=== PATIENT | female | born 1990 | race Two or more races ===

== ENCOUNTER 2024-09-16 10:28 | Inpatient (IN) | payer MEDICAID, OTHER ==
[~2024-09-16] VITALS: Ht 167.6 cm; Wt 98.0 kg
--- NOTE | 2024-09-16 10:43 | ECG ---
[facility] Test Date: 2024-09-16 Test Time: 10:36:50 Pat Name: JULIA HARTLEY Department: ED Room: 0217 Gender: F Director Investor Relations: EDGARDO : 1990 Requested By: MIGUEL A PINON Order Number: [id number] Reading MD: Jayme Cheema Measurements Intervals [place] Rate: 91 P: 64 MO: 109 QRS: 35 QRSD: 89 T: 33 QT: 356 QTc: 439 Interpretive Statements Sinus rhythm Short MO interval Baseline wander in lead(s) V3 Electronically Signed On 09-17-2024 17:00:47 PDT by Jayme Cheema Please click the below link to view image of tracing.
[2024-09-16 10:49] LABS: Hematocrit 26.3 % (36.0-46.0); Hemoglobin 8.0 g/dL (12.2-16.2); Mean Corpuscular Hemoglobin 21.9 pg (28.0-32.0); Mean Corpuscular Volume 72.2 fL (80.0-100.0); Nucleated Red Blood Cells % 0.1 %
--- NOTE | 2024-09-16 10:49 | ED.PDOC ---
History of Present Illness HPI Comments 34-year-old female with PMHx MS, Anemia brought in by EMS presents with a chief complaint of weakness and left leg numbness. Patient recently moved here from [place] and has yet to establish a primary care doctor. Patient mentions that she takes shots for her MS, but has not had one in 4 months due to moving. Patient also is having left leg numbness. Time Seen by MD: 10:28 Reviewed Notes: Nurses Notes, Medications, Allergies Allergies: Coded Allergies: NO KNOWN ALLERGIES (Unverified , 09/16/24) Information Source: Patient, Emergency Med Personnel Mode of Arrival: EMS Severity: Moderate Timing: Days Duration: Since onset Prehospital treatment: Patent Solicitor Past Medical History PAST MEDICAL HISTORY: Anemia Past Medical History (Other): MS Surgical History: IMPORT EXPORT CLERK History: Denies all IMPORT EXPORT CLERK Hx Family History Family History: Reviewed,noncontributory to illness Social History Smoker: Non-Smoker Alcohol: Denies ETOH Use Drugs: Denies Drug Use Lives In: Home Constitutional: reports: weakness; denies: chills, diaphoresis, fatigue, fever, malaise, sweats, others EENTM: denies: blurred vision, double vision, ear bleeding, ear discharge, ear drainage, ear pain, ear ringing, eye pain, eye redness, hearing loss, mouth pain, mouth swelling, nasal discharge, nose bleeding, nose congestion, nose pain, photophobia, tearing, throat pain, throat swelling, voice changes, others Respiratory: denies: cough, hemoptysis, orthopnea, SOB at rest, shortness of breath, SOB with excertion, stridor, wheezing, others Cardiovascular: denies: chest pain, dizzy spells, diaphoresis, Dyspnea on exertion, edema, irregular heart beat, left arm pain, lightheadedness, palpitations, PND, syncope, others Gastrointestinal: denies: abdomen distended, abdominal pain, blood streaked bowels, constipated, diarrhea, dysphagia, difficulty swallowing, hematemesis, melena, nausea, poor appetite, poor fluid intake, rectal bleeding, rectal pain, vomiting, others Genitourinary: denies: abnormal vagina bleeding, burning, dyspareunia, dysuria, flank pain, frequency, hematuria, incontinence, pain, , vagina discharge, urgency, others Neurological: reports: numbness; denies: dizziness, fainting, headache, left sided numbness, left sided weakness, paresthesia, pre-existing deficit, right sided numbness, right sided weakness, seizure, speech problems, tingling, tremors, weakness, others Musculoskeletal: denies: back pain, gout, joint pain, joint swelling, muscle pa in, muscle stiffness, neck pain, others Integumetry: denies: bruises, change in color, change in hair/nails, dryness, laceration, lesions, lumps, rash, wounds, others Allergic/Immunocompromised: denies: Difficulty Healing, Frequent Infections, Hives, Itching, others Hematologic/Lymphatic: denies: anemia, blood clots, easy bleeding, easy bruising, swollen glands, others Endocrine: denies: excessive hunger, excessive sweating, excessive thirst, excessive urination, flushing, intolerance to cold, intolerance to heat, unexplained weight gain, unexplained weight loss, others Psychiatric: denies: anxiety, bipolar disorder, depression, hopeless, panic disorder, schizophrenia, sleepless, suicidal, others All Other Systems: Reviewed and Negative Physical Exam General Appearance: Moderate Distress HEENT: Normal ENT Inspection, Pharynx Normal, TMs Normal Neck: Full Range of Motion, Non-Tender, Normal, Normal Inspection Respiratory: Chest Non-Tender, Lungs Clear, No Accessory Muscle Use, No Respiratory Distress, Normal Breath Sounds Cardiovascular: No Edema, No JVD, No Murmur, No Gallop, Normal Peripheral Pulses, Regular Rate/Rhythm Breast Exam: Deferred Gastrointestinal: No Organomegaly, Non Tender, No Pulsatile Mass, Normal Bowel Sounds, Soft Genitalia: Deferred Pelvic: Deferred Rectal: Deferred Extremities: No calf tenderness, Normal capillary refill, Pedal edema Musculoskeletal : Apperance: Normal Neurologic: hairspring adjuster II-XII nml as Tested, Motor Weakness, Normal Affect, Normal Mood, No Sensory Deficits Cerebellar Function: Unable to Test Reflexes: Normal Skin: Dry, Pallor, Warm Lymphatic: No Adenopathy Was a procedure done? Was a procedure done?: No EKG EKG : Pulse Rate (adult): 91 Spicer: Normal Cardiac Rhythm: NSR Block: None Hypertrophy: None ST: Normal Differential Dx Considerations may include: Exacerbation of multiple sclerosis, anemia, UTI X-Ray, Labs, Meds, VS Vital Signs Date Time Temp Pulse Resp B/P (MAP) Pulse Ox O2 Delivery O2 Flow Rate FiO2 09/16/24 10:51 Room Air* 0 21 09/16/24 10:49 91 09/16/24 10:42 98.9 94 18 114/68 (83) 100 98.9 09/16/24 10:36 91 Lab Test 09/16/24 10:40 Range/Units White Blood Count 4.0 L 4.4-10.8 10^3/uL Red Blood Count 3.64 L 4.0-5.20 10^6/uL Hemoglobin 8.0 L 12.2-16.2 g/dL Hematocrit 26.3 L 36.0-46.0 % Mean Corpuscular Volume 72.2 L 80.0-100.0 fL Mean Corpuscular Hemoglobin 21.9 L 28.0-32.0 pg Mean Corpuscular Hemoglobin Concent 30.3 L 32.0-36.0 g/dL Red Cell Distribution Width 20.6 H 11.8-14.3 % Platelet Count 236 140-450 10^3/uL Mean Platelet Volume 8.7 6.9-10.8 fL Neutrophils (%) (Auto) 59.1 37.0-80.0 % Lymphocytes (%) (Auto) 29.5 10.0-50.0 % Monocytes (%) (Auto) 9.1 0.0-12.0 % Eosinophils (%) (Auto) 1.2 0.0-7.0 % Basophils (%) (Auto) 1.1 0.0-2.0 % Neutrophils # (Auto) 2.4 1.6-8.6 10 ^3/uL Lymphocytes # (Auto) 1.2 0.4-5.4 10 ^3/uL Monocytes # (Auto) 0.4 0-1.3 10 ^3/uL Eosinophils # (Auto) 0 0-0.8 10 ^3/uL Basophils # (Auto) 0 0-0.2 10 ^3/uL Nucleated Red Blood Cells 0.1 % Sodium Level 143 136-145 mmol/L Potassium Level 3.4 L 3.5-5.1 mmol/L Chloride Level 107 98-107 mmol/L Carbon Dioxide Level 28 20-31 mmol/L Anion Gap 8 5-15 Blood Urea Nitrogen 13 9-23 mg/dL Creatinine 0.81 0.550-1.02 mg/dL Glomerular Filtration Rate Calc 98 >90 mL/min BUN/Creatinine Ratio 16.0 10.0-20.0 Serum Glucose 87 74-106 mg/dL Calcium Level 9.8 8.7-10.4 mg/dL Current Medications Medications (Trade) Dose Ordered Sig/Lorena Route Start Time Stop Time Status Last Admin Sodium Chloride 500 ml @ 500 mls/hr Q1H ONCE IV 09/16/24 10:45 09/16/24 11:44 DC 09/16/24 10:51 Methylprednisolone Sodium Succinate (Solu Medrol) 125 mg ONCE ONCE IV 09/16/24 10:45 09/16/24 10:46 DC 09/16/24 10:51 IV Hep-Lock was established The patient was given normal saline at 500 cc bolus The patient was given Solu-Medrol 125 mg IV push The patient is being given morphine for the pain and Zofran for the nausea The patient had a CBC showing anemia with a hemoglobin of 8 and hematocrit 26.3 The patient will be typed and screened for possible transfusion The chemistry panel is within normal limits At this time, the patient is being admitted to the hospital for exacerbation of the multiple sclerosis Time of 1ST Reevaluation: 10:58 Reevaluation 1ST: Unchanged Time of 2ND Reevaluation: 11:53 Reevaluation 2ND: Unchanged Patient Education/Counseling: Diagnosis, Treatment, Prognosis Family Education/Counseling: Diagnosis, Treatment, Prognosis SEPSIS Sepsis Screen Physician Orders Urinalysis (09/16/24 10:35) Heplock Iv (09/16/24 10:35) Patent Solicitor (09/16/24 10:35) Blood Pressure (09/16/24 10:35) Pulse Oximetry (09/16/24 10:35) Vital Signs Date Time Temp Pulse Resp B/P (MAP) Pulse Ox O2 Delivery O2 Flow Rate FiO2 09/16/24 10:51 Room Air* 0 21 09/16/24 10:49 91 09/16/24 10:42 98.9 94 18 114/68 (83) 100 98.9 09/16/24 10:36 91 Laboratory Tests Test 09/16/24 10:40 White Blood Count 4.0 10^3/uL (4.4-10.8) L Medications Medications Dose Ordered Sig/Lorena Route Start Time Stop Time Status Last Admin Dose Admin Methylprednisolone Sodium Succinate 125 mg ONCE ONCE IV 09/16/24 10:45 09/16/24 10:46 DC 09/16/24 10:51 Sodium Chloride 500 ml @ 500 mls/hr Q1H ONCE IV 09/16/24 10:45 09/16/24 11:44 DC 09/16/24 10:51 Departure 1 Departure Time of Disposition: 11:52 Impression: Primary Impression: Multiple sclerosis exacerbation Disposition: ADMITTED INPATIENT Admit to: Med Surg Condition: Fair Critical Care Note Critical Care Time?: No Stability Stability form required: Yes Unstable for transfer: ED Physician Assesment (Clinical assesment) Heart Score Heart Score: Heart Score Response (Comments) Value History N/A 0 EKG N/A 0 Age N/A 0 Risk Factors N/A 0 Troponin N/A 0 Total 0 I personally scribed for MIGUEL A PINON MD ([email or web address]) on 09/16/24 at 10:49. Electronically submitted by Anirudh Quinn ([email or web address]). MIGUEL A PINON MD Sep 16, 2024 10:49
[2024-09-16] MEDS: methylPREDNISolone SOD SUCC 125 MG/2 ML VL IV ONE (10:51)
[2024-09-16] MEDS: SODIUM CHLORIDE 0.9% 500 ML IV ONE (10:51)
[2024-09-16 10:59] LABS: Sodium 143 mmol/L (136-145)
[2024-09-16 11:00] LABS: Anion Gap 8 (5-15); Calcium 9.8 mg/dL (8.7-10.4); Carbon Dioxide 28 mmol/L (20-31)
[2024-09-16 11:05] LABS: BUN/Creatinine Ratio 16.0 (10.0-20.0); Blood Urea Nitrogen 13 mg/dL (9-23); Chloride 107 mmol/L (98-107); Glucose 87 mg/dL (74-106); Potassium 3.4 mmol/L (3.5-5.1)
[2024-09-16] MEDS: ONDANSETRON HCL 4 MG/2 ML VIAL IV ONE (12:23)
[2024-09-16] MEDS: MORPHINE SULFATE INJ 2 MG/ml SYRG IV ONE (12:24)
--- NOTE | 2024-09-16 14:23 | DVHHP2 ---
History of Present Illness Reason for Visit: Generalized weakness History of Present Illness Melinda Owen is a 34-year-old female with past medical history of multiple sclerosis and anemia, who came to the hospital for generalized weakness. Patient moved up here about 4 months ago from [place]. In [place] she was being followed by jeanne yang and receiving monthly infusions to help manage her MS. She has not had those infusion or any medications for 4 months now and her symptoms are worsening. She is not aware of what the infusions were and does not know any of the medications she was previously taking. She has not established a primary care provider or neurologist up here. OWNER/OPERATOR: Other (MS) Heme/Onc: Anemia NOS Past Surgical History: (x 1) Smoke: No ALCOHOL: none Drugs: Marijuana Lives: with Family Domestic Violence: Neg Review of Systems Constitutional: No: Fever, Chills, Sweats, Weakness, Malaise, Other Eyes: No: Pain, Vision change, Conjunctivae inflammation, Eyelid inflammation, Other, Redness ENT: No: Ear pain, Ear discharge, Nose pain, Nose discharge, Nose congestion, Mouth pain, Mouth swelling, Throat pain, Throat swelling, Other Respiratory: No: Cough, Dry, Shortness of breath, SOB with excertion, Wheezing, Hemoptysis, Pleuritic Pain, Sputum, Wheezing, Other Cardiovascular: No: Chest Pain, Palpitations, Orthopnea, Paroxysmal Noc. Dyspnea, Edema, Lt Headedness, Other Gastrointestinal: No: Nausea, Vomiting, Abdominal Pain, Diarrhea, Constipation, Melena, Hematochezia, Other Genitourinary: No Dysuria, No Frequency, No Incontinence, No Hematuria, No Retention, No Other Musculoskeletal: No: other, neck pain, shoulder pain, arm pain, back pain, hand pain, leg pain, foot pain Skin: No: Rash, Lesions, Jaundice, Bruising, Other Neurological: Weakness, Incoordination, Change in speech; No: Numbness, Confusion, Seizures, Other Allergies: Coded Allergies: NO KNOWN ALLERGIES (Unverified , 09/16/24) Exam Vital Signs Vital Signs Date Time Temp Pulse Resp B/P (MAP) Pulse Ox O2 Delivery O2 Flow Rate FiO2 09/16/24 14:03 94 18 97/54 (68) 100 09/16/24 10:51 Room Air* 0 21 09/16/24 10:42 98.9 98.9 General Appearance: Alert, Oriented X3, Cooperative, moderate distress HEENT: Atraumatic, PERRLA Respiratory: Clear to auscultation, Normal air movement Cardiovascular: Regular rate, Normal S1, Normal S2, No murmurs Abdominal: Normal bowel sounds, Soft, No tenderness Extremities: No clubbing, No cyanosis, No edema, Normal pulses Skin: No rashes, No breakdown, No significant lesion Neuro: Other (H/O MS, in a wheel chair) Labs/Xrays Labs Test 09/16/24 10:40 Range/Units White Blood Count 4.0 L 4.4-10.8 10^3/uL Red Blood Count 3.64 L 4.0-5.20 10^6/uL Hemoglobin 8.0 L 12.2-16.2 g/dL Hematocrit 26.3 L 36.0-46.0 % Mean Corpuscular Volume 72.2 L 80.0-100.0 fL Mean Corpuscular Hemoglobin 21.9 L 28.0-32.0 pg Mean Corpuscular Hemoglobin Concent 30.3 L 32.0-36.0 g/dL Red Cell Distribution Width 20.6 H 11.8-14.3 % Platelet Count 236 140-450 10^3/uL Mean Platelet Volume 8.7 6.9-10.8 fL Neutrophils (%) (Auto) 59.1 37.0-80.0 % Lymphocytes (%) (Auto) 29.5 10.0-50.0 % Monocytes (%) (Auto) 9.1 0.0-12.0 % Eosinophils (%) (Auto) 1.2 0.0-7.0 % Basophils (%) (Auto) 1.1 0.0-2.0 % Neutrophils # (Auto) 2.4 1.6-8.6 10 ^3/uL Lymphocytes # (Auto) 1.2 0.4-5.4 10 ^3/uL Monocytes # (Auto) 0.4 0-1.3 10 ^3/uL Eosinophils # (Auto) 0 0-0.8 10 ^3/uL Basophils # (Auto) 0 0-0.2 10 ^3/uL Nucleated Red Blood Cells 0.1 % Sodium Level 143 136-145 mmol/L Potassium Level 3.4 L 3.5-5.1 mmol/L Chloride Level 107 98-107 mmol/L Carbon Dioxide Level 28 20-31 mmol/L Anion Gap 8 5-15 Blood Urea Nitrogen 13 9-23 mg/dL Creatinine 0.81 0.550-1.02 mg/dL Glomerular Filtration Rate Calc 98 >90 mL/min BUN/Creatinine Ratio 16.0 10.0-20.0 Serum Glucose 87 74-106 mg/dL Calcium Level 9.8 8.7-10.4 mg/dL SEPSIS Sepsis Screen Date sepsis recognized/suspect: Sep 16, 2024 Time Sepsis recognized/suspect: 1041 Recent Procedure: No On Antibiotic Therapy: No Respiratory Rate >20: No Heart Rate >90: No Temp<36 C (96.8 F) or >38.3 C: No SBP <90 or MAP <65 mmHG: No New Acute Mental Status Change: No Is the patient on CPAP, BIPAP,: No Physician Orders Urinalysis (09/16/24 10:35) Heplock Iv (09/16/24 10:35) Front End Loader Operator (09/16/24 10:35) Blood Pressure (09/16/24 10:35) Pulse Oximetry (09/16/24 10:35) * Neurology Consult (09/16/24 14:19) Admit (09/16/24 14:19) Code Status (09/16/24 14:19) Hydrocodone-Acet 5/325mg Tab ([place] 5/32 (09/16/24 14:30) Ondansetron Hcl (Zofran) (09/16/24 14:30) Docusate Sodium Capsule (Colace Capsule) (09/16/24 14:30) Fall Risk Precautions In Place QSHIFT (09/16/24 14:19) Complete Blood Count (09/17/24 04:00) Comprehensive Metabolic Panel (09/17/24 04:00) Pt Request For Service (09/16/24 14:19) Condition: Serious (09/16/24 14:19) Acetaminophen Tablet (Tylenol Tablet) (09/16/24 14:30) Vital Signs Date Time Temp Pulse Resp B/P (MAP) Pulse Ox O2 Delivery O2 Flow Rate FiO2 09/16/24 14:03 94 18 97/54 (68) 100 09/16/24 12:24 90 18 100/56 09/16/24 10:51 Room Air* 0 21 7/22/25 10:49 91 09/16/24 10:42 98.9 94 18 114/68 (83) 100 98.9 09/16/24 10:36 91 Laboratory Tests Test 09/16/24 10:40 White Blood Count 4.0 10^3/uL (4.4-10.8) L Medications Medications Dose Ordered Sig/Lorena Route Start Time Stop Time Status Last Admin Dose Admin Methylprednisolone Sodium Succinate 125 mg ONCE ONCE IV 09/16/24 10:45 09/16/24 10:46 DC 09/16/24 10:51 125 MG Morphine Sulfate 2 mg ONCE ONCE IV 09/16/24 12:00 09/16/24 12:01 DC 09/16/24 12:24 2 MG Ondansetron HCl 4 mg ONCE ONCE IV 09/16/24 12:00 09/16/24 12:01 DC 09/16/24 12:23 4 MG Sodium Chloride 500 ml @ 500 mls/hr Q1H ONCE IV 09/16/24 10:45 09/16/24 11:44 DC 09/16/24 10:51 500 MLS/HR Assessment/Plan Assessment/Plan Assessment: Multiple sclerosis exacerbation, Anemia, Plan: Admit to Med-Surg, Neurology consult, Physical therapy, Fall precautions, Start iron, UA, Plan discussed with: Patient, Other (Cousin) My Orders Orders - ELLEN PRUITT MOLYBDENUM STEAMER OPERATOR Procedure Category Date Status Time * Neurology Consult CONS 09/16/24 Verified 14:19 Admit ADMIT 09/16/24 Verified 14:19 Code Status CODE 09/16/24 Verified 14:19 Hydrocodone-Acet PHA 09/16/24 Verified 5/325mg Tab ([place] 14:30 Ondansetron Hcl PHA 09/16/24 Verified (Zofran) 14:30 Docusate Sodium PHA 09/16/24 Verified Capsule (Colace 14:30 Fall Risk Precautions OJ 09/16/[address] 14:19 Complete Blood Count LAB 09/17/24 Verified 04:00 Comprehensive LAB 09/17/24 Verified Metabolic Panel 04:00 Pt Request For Service PT 09/16/24 Verified 14:19 Condition: Serious OJ 09/16/24 Verified 14:19 Acetaminophen Tablet PHA 09/16/24 Verified (Tylenol Tablet) 14:30 Date of Service: Sep 16, 2024 Billing Provider: ELLEN PRUITT Common Visit Codes: [id number] INP/OBS CARE (MOD) ELLEN PRUITT Sep 16, 2024 14:23
[2024-09-16] MEDS ORDERED: DOCUSATE SOD 100 MG CAP PO PRN (14:30)
[2024-09-16] MEDS ORDERED: ACETAMINOPHEN 325 MG TAB PO PRN (14:30)
[2024-09-16] MEDS ORDERED: ONDANSETRON HCL 4 MG/2 ML VIAL IV PRN (14:30)
[2024-09-16] MEDS ORDERED: HYDROcodone-ACET 5/325MG TAB PO PRN (14:30)
[2024-09-16 17:05] VITALS: PULSE 86; RESP 16; O2SAT 100
[2024-09-16] MEDS: FERROUS SULFATE 325mg EC TAB PO SCH (18:36)
[2024-09-16 19:45] VITALS: PULSE 94; RESP 18; O2SAT 98
--- NOTE | 2024-09-16 20:21 | DVHINCON2 ---
Date of service: Sep 16, [address] Sung Reason for Consultation MS History of Present Illness Ms. Owen is a 34 years old right-handed female with a history of anemia, obesity, multiple sclerosis, she present to the [facility] on 09/16/2024 with a chief complaint of weakness in the left arm than leg since 09/15/2024, at that time, she is alert and fully oriented, she provided the following history She claims she has a history of multiple sclerosis. She developed slurred speech, gait disturbance five years ago, and after MRI scan to the head, cervical spine, thoracic spine, lumbar puncture in the [facility], she was said to have multiple sclerosis soon after her symptom onset. In the has a few months of time, she noticed difficulty with bladder control. She does not remember how she was treated before 2022, she has been on infusion once monthly (she does not remember the name other medication) for two years. She reports MS flare once yearly, with last one about one year ago, at her last MRI scan was about one year ago She has no acute chills, fever, or other acute illness She recently moved here from [place], and she has not established family care physician yet WBC/HB/PLT/MCV, 09/16/2024: 4/8/236/72.2 BMP 09/16/2024: Unremarkable Past Medical History Anemia, multiple sclerosis Past Surgical History Family History Hypertension Social History She has not tobacco smoke, but she smokes marijuana, she denies a history of drug or alcohol abuse Allergies: Coded Allergies: NO KNOWN ALLERGIES (Unverified , 09/16/24) Current Medications Current Medications Medications (Trade) Dose Ordered Sig/Lorena Route PRN Reason Start Time Stop Time Status Last Admin Acetaminophen/ Hydrocodone Bitart ([place] 5/325MG Tab) 1 tab Q4HP PRN PO MODERATE PAIN (4-6 PAIN SCALE) 09/16/24 14:30 Ondansetron HCl (Zofran) 4 mg Q4HP PRN IV NAUSEA / VOMITING 09/16/24 14:30 Docusate Sodium (Colace Capsule) 100 mg BIDPRN PRN PO FOR CONSTIPATION 09/16/24 14:30 Acetaminophen (Tylenol Tablet) 650 mg Q6HP PRN PO PAIN SCALE 1-3 OR TEMP>100.4 09/16/24 14:30 Ferrous Sulfate 325 mg BIDWM PO 09/16/24 18:00 09/16/24 18:36 Review of Systems As above, the other systems are negative Vital Signs Vital Signs Date Time Temp Pulse Resp B/P (MAP) Pulse Ox O2 Delivery O2 Flow Rate FiO2 09/16/24 19:45 97.8 94 18 117/63 (81) 98 97.8 09/16/24 19:45 Room Air* 0 21 Physical Exam GENERAL EXAM: General: the patient is well developed and nourished. No acute distress. HEENT: Normocephalic, neck is supple, no carotid bruits. No mass. RESPIRATORY: Normal respiratory effort with symmetrical lung expansion. Lungs clear to auscultation. CARDIOVASCULAR: Regular rate and rhythm with no murmurs. S1, S2. ABDOMEN: Soft, nontender, normal bowel sound NEUROLOGICAL: MENTAL STATUS: Awake and alert. Oriented to person, place, time and general circumstances. Able to give personal history SPEECH, LANGUAGE, HIGHER CORTICAL FUNCTION: no aphasia or dysathria. CRANIAL NERVES: #2: Intact visual ruiz to confrontation. The optic discs were sharp. . #3,4,6: Pupils are equal, round and reactive. EOMs full and conjugate. No nystagmus. #5: Facial sensation intact in all three divisions bilaterally. Mandibular strength intact. #7: Facial muscles symmetrical and strength intact. #8: Hearing grossly normal to voice. #9,10: Uvula and soft palate rise in the midline. Swallow and voice are normal. #11: Trapezius and sternomastoid strength intact bilaterally. #12: Tongue midline. No fasciculations or atrophy. SENSATION: Sensation to touch and pinprick is normal, no sensory level MOTOR: Normal tone in the upper and lower extremity. Normal muscle bulk. No fasciculations. No abnormal movements or posturing. Muscle strength of the major groups in the upper extremities is 5/5. Muscle strength of the major groups in the lower extremities is 5/5. REFLEXES: Deep tendon reflexes normal and symmetrical. No pathological reflexes. CEREBELLAR/COORDINATION: Finger to nose hertz bilaterally intentional tremor GAIT/STATION: deferred. Labs/Diagnostic Data Labs Test 09/16/24 10:40 Range/Units White Blood Count 4.0 L 4.4-10.8 10^3/uL Red Blood Count 3.64 L 4.0-5.20 10^6/uL Hemoglobin 8.0 L 12.2-16.2 g/dL Hematocrit 26.3 L 36.0-46.0 % Mean Corpuscular Volume 72.2 L 80.0-100.0 fL Mean Corpuscular Hemoglobin 21.9 L 28.0-32.0 pg Mean Corpuscular Hemoglobin Concent 30.3 L 32.0-36.0 g/dL Red Cell Distribution Width 20.6 H 11.8-14.3 % Platelet Count 236 140-450 10^3/uL Mean Platelet Volume 8.7 6.9-10.8 fL Neutrophils (%) (Auto) 59.1 37.0-80.0 % Lymphocytes (%) (Auto) 29.5 10.0-50.0 % Monocytes (%) (Auto) 9.1 0.0-12.0 % Eosinophils (%) (Auto) 1.2 0.0-7.0 % Basophils (%) (Auto) 1.1 0.0-2.0 % Neutrophils # (Auto) 2.4 1.6-8.6 10 ^3/uL Lymphocytes # (Auto) 1.2 0.4-5.4 10 ^3/uL Monocytes # (Auto) 0.4 0-1.3 10 ^3/uL Eosinophils # (Auto) 0 0-0.8 10 ^3/uL Basophils # (Auto) 0 0-0.2 10 ^3/uL Nucleated Red Blood Cells 0.1 % Sodium Level 143 136-145 mmol/L Potassium Level 3.4 L 3.5-5.1 mmol/L Chloride Level 107 98-107 mmol/L Carbon Dioxide Level 28 20-31 mmol/L Anion Gap 8 5-15 Blood Urea Nitrogen 13 9-23 mg/dL Creatinine 0.81 0.550-1.02 mg/dL Glomerular Filtration Rate Calc 98 >90 mL/min BUN/Creatinine Ratio 16.0 10.0-20.0 Serum Glucose 87 74-106 mg/dL Calcium Level 9.8 8.7-10.4 mg/dL Assessment Reported multiple sclerosis with the following symptoms Gait disturbance Slurred speech Bladder incontinence Acute left-sided weakness since 09/15/24, to rule out MS exacerbation Plan/Recommendation Monitoring Supportive treatment Telemetry UDS Urinalysis Chest x-ray later MRI brain with without contrast MRI C-spine with without contrast MRI T-spine with without contrast IV Solu-Medrol 1000 mg daily for five days GI prophylaxis DVT prophylaxis Up to chair Physical therapy She needs to establish a primary care in the [facility] More recommendation per clinical course Progress: Poor This medical document was created using an electronic medical record system with [employer] dictation system. Although this document has been carefully reviewed, there may still be some phonetic and typographical errors. These areas are purely typographical due to imperfections of the software programs, and do not reflect any compromise in the patient's medical care. Plan discussed with: Patient, Other JERARDO CUMMINGS MD Sep 16, 2024 20:21
[2024-09-16 20:52] VITALS: BP 111/70; PULSE 89; RESP 17; RESP 18; TEMP 96.1; O2SAT 99
[2024-09-16] MEDS ORDERED: LORazepam 2MG/ML-1ML VIAL IV PRN (22:30)
[2024-09-16] MEDS ORDERED: methylPREDNISolone SOD SUCC 1,000 MG in SODIUM CHL 0.9% 250 ML IV ONE (22:45)
[2024-09-16] MEDS: methylPREDNISolone SOD SUCC 125 MG/2 ML VL ONE (23:15)
[2024-09-16] MEDS: methylPREDNISolone SOD SUCC 1,000 MG in SODIUM CHL 0.9% 250 ML IV ONE (23:24)
[2024-09-17] VITALS (7 sets, daily range): BP systolic 98–113; BP diastolic 54–68; PULSE 52–100; RESP 16–20; TEMP 97–98.7; O2SAT 90–100
[2024-09-17 05:27] LABS: Hematocrit 24.6 % (36.0-46.0); Hemoglobin 7.6 g/dL (12.2-16.2); Mean Corpuscular Hemoglobin 22.4 pg (28.0-32.0); Mean Corpuscular Volume 72.3 fL (80.0-100.0); Nucleated Red Blood Cells % 0.0 %
[2024-09-17 05:48] LABS: Albumin 4.0 g/dL (3.2-4.8); Alkaline Phosphatase 76 U/L (46-116); Calcium 9.6 mg/dL (8.7-10.4); Carbon Dioxide 25 mmol/L (20-31); Chloride 106 mmol/L (98-107)
[2024-09-17 05:49] LABS: Anion Gap 9 (5-15); BUN/Creatinine Ratio 17.1 (10.0-20.0); Bilirubin, Total 0.3 mg/dL (0.2-1.0); Blood Urea Nitrogen 12 mg/dL (9-23); Potassium 3.6 mmol/L (3.5-5.1); Sodium 140 mmol/L (136-145); Total Protein 7.3 g/dL (5.7-8.2)
[2024-09-17 05:58] LABS: Alanine Aminotransferase < 9 U/L (7-40); Glucose 111 mg/dL (74-106)
[2024-09-17 08:58] LABS: Total Iron Binding Capacity 293.0 ug/dL (250-425)
[2024-09-17 09:01] LABS: Ferritin 9.1 ng/mL (10-291); Iron 246.0 ug/dL (50-170)
--- NOTE | 2024-09-17 09:09 | DVHPN2 ---
Progress Note - Dictate Date Seen: Sep 17, 2024 Medical Necessity Reason Pt with a Central, PICC or Fol: No Subjective Ms. Brayden is a 34 years old right-handed female with a history of anemia, obesity, multiple sclerosis, she present to the [facility] on 09/16/2024 with a chief complaint of weakness in the left arm than leg since 09/15/2024, I have seen and examined the patient, I have talked to her nurse, she is doing fine, no new complaints, she reports feeling better Her MRI showed active demyelinating disease in the brain UDS, 09/17/2024: Negative Urinalysis, 05/18/2024: WBC: 328, urine leukocyte esterase: 3+ WBC/HB/PLT/MCV, 09/16/2024: 4/8/236/72.2 BMP 09/16/2024: Unremarkable CMP, 08/2324: Unremarkable Beta hCG, 09/16/24: 0.1 Chest x-ray, 09/17/2024: No evidence of acute disease. MRI brain WWO, 09/17/2024: No evidence of acute infarction, intracranial hemorrhage, mass effect or hydrocephalus. Moderate white matter disease consistent with given history of multiple sclerosis. Subcentimeter enhancing lesion in the right frontal white matter consistent with active demyelination. Clinical correlation and continued follow-up is recommended. Likely sebaceous cyst in the right parietal scalp. MRI C-spine o, 09/17/2024: 1. No significant posterior disc disease, spinal canal or neural foraminal narrowing. 2. Patchy abnormal cord signal throughout the cervical spine consistent with demyelinating disease. No associated enhancement to suggest active demyelination. Clinical correlation and continued follow-up is recommended. MRI T-spine, 09/17/2024: 1. No significant posterior disc disease, central canal or neural foraminal narrowing. 2. Limited by motion, particularly on the axial images. Patchy abnormal cord signal throughout the thoracic spine consistent with demyelinating disease. Questionable enhancement in the midthoracic spine could represent active demyelination. Clinical correlation and continued follow- up is recommended. vital signs Vital Sign Date Time Temp Pulse Resp B/P (MAP) Pulse Ox O2 Delivery O2 Flow Rate FiO2 09/17/24 08:40 98.3 84 20 98/65 (76) 98 98.3 09/16/24 20:52 Room Air* 0 21 Total Intake and Output 09/16/24 09/16/24 09/17/24 15:00 23:00 07:00 Intake Total 500 ml 110 ml Balance 500 ml 110 ml medications Current Medications Medications Dose Ordered Sig/Lorena Route Start Time Stop Time Status Last Admin Dose Admin Acetaminophen/ Hydrocodone Bitart 1 tab Q4HP PRN PO 09/16/24 14:30 Ondansetron HCl 4 mg Q4HP PRN IV 09/16/24 14:30 Docusate Sodium 100 mg BIDPRN PRN PO 09/16/24 14:30 Acetaminophen 650 mg Q6HP PRN PO 09/16/24 14:30 Ferrous Sulfate 325 mg BIDWM PO 09/16/24 18:00 09/16/24 18:36 325 MG Lorazepam 1 mg ONCE PRN IV 09/16/24 22:30 Methylprednisolone Sodium Succinate 1000 mg/Sodium Chloride 250 ml @ 300 mls/hr DAILY IV 09/17/24 10:00 09/20/24 23:00 Pantoprazole Sodium 40 mg DAILY IV 09/17/24 10:00 objective General: the patient is well developed and nourished. No acute distress. MENTAL STATUS: Subjective SPEECH, LANGUAGE, HIGHER CORTICAL FUNCTION: no aphasia or dysathria. CRANIAL NERVES: Pupils are equal, round and reactive. EOMs full and conjugate. No nystagmus. Facial sensation intact in all three divisions bilaterally. Mandibular strength intact. Facial muscles symmetrical and strength intact. SENSATION: Sensation to touch and pinprick is normal, no sensory level MOTOR: Normal tone in the upper and lower extremity. Normal muscle bulk. No fasciculations. No abnormal movements or posturing. Muscle strength of the major groups in the extremities is 5/5. REFLEXES: Deep tendon reflexes normal and symmetrical. No pathological reflexes. CEREBELLAR/COORDINATION: Finger to nose hertz bilaterally intentional tremor GAIT/STATION: deferred. laboratory and microbiology Laboratory Tests 09/17/24 04:43 Test 09/17/24 04:43 Range/Units Serum Glucose 111 H 74-106 mg/dL Problem List Reported multiple sclerosis with the following symptoms Gait disturbance Slurred speech Bladder incontinence Acute left-sided weakness since 09/15/24, secondary to MS exacerbation Urinary tract infection Assessment/Plan Monitoring Supportive treatment Urine culture Telemetry IV Solu-Medrol 1000 mg daily for five days IV antibiotics GI prophylaxis DVT prophylaxis Up to chair Physical therapy She needs to establish a primary care in the [facility] More recommendation per clinical course Progress: Poor This medical document was created using an electronic medical record system with [employer] dictation system. Although this document has been carefully reviewed, there may still be some phonetic and typographical errors. These areas are purely typographical due to imperfections of the software programs, and do not reflect any compromise in the patient's medical care Prognosis poor Plan discussed with: Patient, Other JERARDO CUMMINGS MD Sep 17, 2024 09:08
[2024-09-17] MEDS: GADOTERATE MEG 10 MMOL/20ml INJ (0.5MMOL/ml) IV ONE (09:43)
[2024-09-17] MEDS ORDERED: FAMOTIDINE 20 MG TAB PO SCH (10:00)
--- NOTE | 2024-09-17 11:50 | DVH ---
PROCEDURE: MRI BRAIN HEAD WO W CONTRAST INDICATION: MS EXAM DATE: 09/17/2024 10:04 AM COMPARISON: None TECHNIQUE: MRI of the brain without intravenous contrast. FINDINGS: Diffusion weighted images of the brain demonstrate no evidence of acute infarction. There is no evidence of acute intracranial hemorrhage, extra-axial collection, mass effect, midline s hift, herniation or hydrocephalus. The ventricles, sulci and cisterns appear age appropriate. Moderate periventricular and deep white matter signal abnormality consistent with given history of mu ltiple sclerosis. Subcentimeter enhancing lesion in the right frontal white matter. There are no signal abnormalities on the susceptibility weighted sequences. The major vascular flow voids are present. The visualized paranasal sinuses and mastoid air cells are clear. Subcutaneous lesion in the right p arietal scalp likely a sebaceous cyst. IMPRESSION: 1. No evidence of acute infarction, intracranial hemorrhage, mass effect or hydrocephalus. Moderate w dai matter disease consistent with given history of multiple sclerosis. Subcentimeter enhancing lesi on in the right frontal white matter consistent with active demyelination. Clinical correlation and c ontinued follow-up is recommended. Likely sebaceous cyst in the right parietal scalp. HS:Y
--- NOTE | 2024-09-17 11:57 | DVH ---
[facility] [id number] [facility] [address] Ph: [phone] DIAGNOSTIC IMAGING Diagnostic Imaging Report : [id number] Signed PATIENT: JULIA HARTLEY ACCT: [id number] UNIT: [id number] : 1990 LOC: CENTRAL ROOM / BED: 0217 / B AGE / SEX: 34 / F ADM STATUS: ADM IN SERVICE 31 ORDERING PHYSICIAN: JERARDO CUMMINGS MD PROCEDURE(s): MSC - CERVICAL WITH CONTRAST REASON: ORDER NUMBER(s): [id number], ACCESSION NUMBER(s): [id number] PROCEDURE: MRI CERVICAL WITH CONTRAST INDICATION: MS EXAM DATE: 09/17/2024 10:19 AM COMPARISON: None TECHNIQUE: MRI cervical spine without intravenous contrast. FINDINGS: The cervical alignment is intact. The vertebral body heights and marrow signal are within normal limits. The visualized posterior fossa and craniocervical junction are intact. Patchy abnormal cord signal throughout the cervical spine. Associated abnormal enhancement. There is no prevertebral soft tissue swelling. The visualized paraspinal soft tissues are otherwise unremarkable. The following axial levels are detailed below: C2-C3: Unremarkable. C3-C4: Unremarkable. C4-C5: Unremarkable. C5-C6: Unremarkable. C6-C7: Unremarkable. C7-T1: Unremarkable. IMPRESSION: 1. No significant posterior disc disease, spinal canal or neural foraminal narrowing. 2. Patchy abnormal cord signal throughout the cervical spine consistent with demyelinating disease. No associated enhancement to suggest active demyelination. Clinical correlation and continued follow-up is recommended. HS:Y ATED BY: KLEVER LOZANO MD DICTATED DATE/TIME: 09/17/241154 SIGNED BY: KLEVER LOZANO MD SIGNED DATE/TIME: 09/17/241154 CC:
--- NOTE | 2024-09-17 12:04 | DVH ---
PROCEDURE: MRI THORACIC SPINE WO W INDICATION: MS Exam Date: 09/17/2024 10:33 AM COMPARISON: None TECHNIQUE: MRI thoracic spine with and without 20 cc clariscan intravenous contrast. FINDINGS: Limited by motion. The thoracic alignment is intact. The vertebral body heights are intact. There are degenerative en dplate changes with anterior and lateral osteophytes mid to lower thoracic levels. Patchy abnormal co rd signal throughout the thoracic spine consistent with given history of multiple sclerosis. Question able enhancement in the midthoracic spine. There is no significant posterior disc disease, central c anal or neural foraminal narrowing. The visualized paraspinal soft tissues are otherwise unremarkabl e. IMPRESSION: 1. No significant posterior disc disease, central canal or neural foraminal narrowing. 2. Limited by motion, particularly on the axial images. Patchy abnormal cord signal throughout the t horacic spine consistent with demyelinating disease. Questionable enhancement in the midthoracic spin e could represent active demyelination. Clinical correlation and continued follow-up is recommended. HS:Y
[2024-09-17] MEDS: PANTOPRAZOLE 40 MG/10 ML VIAL INJ IV SCH (12:14)
[2024-09-17] MEDS: methylPREDNISolone SOD SUCC 1,000 MG in SODIUM CHL 0.9% 250 ML IV SCH (12:15)
--- NOTE | 2024-09-17 12:27 | DVH ---
INDICATION: Infiltration TECHNIQUE: Frontal view of the chest. COMPARISON: None FINDINGS: . The heart and mediastinal contours are grossly unremarkable. There is no evidence of pleural disea se. The lungs are clear. The bony structures of the chest are intact without fracture. IMPRESSION: 1. No evidence of acute disease.
--- NOTE | 2024-09-17 16:19 | DVHPNRES ---
Progress Note Date Seen: Sep 17, 2024 Resident Creating Document: MARTA FORD RESIDENT Medical Necessity Reason Pt with a Central, PICC or Fol: No Subjective Review of Systems Patient is a 34-year-old female with prior medical history of multiple sclerosis diagnosed in 2016, who presents to the ED with chief complaint of left leg weakness. Per the patient, she has had decreased sensation in her left leg associated with decreased mobility. Additionally states, that for last 2 months she has had increased bladder incontinence and vocal/language changes with her words becoming more slurred. She states that she moved to [place] approximately 4 months and has not set up care with a PCP or neurologist. Per her mother in law, the patient did not start treatment for MS until late 2022. She states that the patient was receiving monthly steroid shots under the care of her neurologist in [place], however has not received any since moving here. States that during this time, they have witnessed progression of her symptoms. On evaluation in the ED, initial labs show WBC 4.0, Hb 8.0, Sodium 143, Potassium 3.4, BUN 13, and creatinine 0.81. Chest no evidence of acute disease. Due to suspicion of MS flare, patient was admitted for corticosteroid therapy and further work up. Surgical: 1 in 2014 Social: Refers weekly marijuana use, denies other drug use, alcohol use, or tobacco use. States she currently lives with her 's family and her children here in [place], states she feels safe. Patient seen at bedside. Patient is oriented in person, place, and time. States that she feels better, the numbness in her left leg is resolving. States she has been able to mobilize herself to her beside commode. Refers that home she mobilizes with a walker, due to gait instability. Currently denies other numbness or weakness in other regions of her body, changes in vision, nausea, vomiting, and palpitations. Patient was seen by Neurology, who recommended pulse dose of methylprednisolone for 5 days and MRI brain and spine. MRI brain shows no evidence of acute infarction, intracranial hemorrhage, mass effect or hydrocephalus, moderate paraventricular and deep white matter abnormality consistent with MS. Subcentimeter enhancing lesion in the right frontal white matter consistent wit active demyelination. MRI Cervical spine shows patchy abnormal cord signal throughout the cervical spine consistent with demyelinating disease, but no enhancement to suggest active demyelination. MRI thoracic spine shows patchy abnormal cord signal consistent with MS, questionable enhancement in midthoracic spine. Patient is currently on 1000 mg methylprednisolone IV pulse dose. We will continue to monitor. Review of Systems: Constitutional: Denies weight loss, fever and chills. HEENT: Refers changes in voice with increased speech slurring, Denies changes in vision and hearing. Respiratory: Denies shortness of breath and cough Cardiovascular: Denies chest discomfort or palpitations GI: Denies abdominal distention, abdominal pain, diarrhea : Refers progressive urinary incontinence, Denies dysuria and urinary frequency. Musculoskeletal: Refers decreased function of left leg, gait instability Denies any pain Skin: Denies rash and pruritus. Neurological: Refers progression of neurologic symptoms, decreased sensation in left leg, dizziness headache vision or hearing problems Objective vital signs Vital Sign Date Time Temp Pulse Resp B/P (MAP) Pulse Ox O2 Delivery O2 Flow Rate FiO2 09/17/24 13:01 98.7 100 20 106/54 (71) 100 98.7 09/17/24 08:00 Room Air* 0 21 Total Intake and Output 09/16/24 09/16/24 09/17/24 15:00 23:00 07:00 Intake Total 500 ml 110 ml Balance 500 ml 110 ml medications Current Medications Medications Dose Ordered Sig/Lorena Route Start Time Stop Time Status Last Admin Dose Admin Acetaminophen/ Hydrocodone Bitart 1 tab Q4HP PRN PO 09/16/24 14:30 Ondansetron HCl 4 mg Q4HP PRN IV 09/16/24 14:30 Docusate Sodium 100 mg BIDPRN PRN PO 09/16/24 14:30 Acetaminophen 650 mg Q6HP PRN PO 09/16/24 14:30 Ferrous Sulfate 325 mg BIDWM PO 09/16/24 18:00 09/17/24 12:14 325 MG Lorazepam 1 mg ONCE PRN IV 09/16/24 22:30 Methylprednisolone Sodium Succinate 1000 mg/Sodium Chloride 250 ml @ 300 mls/hr DAILY IV 09/17/24 10:00 09/20/24 23:00 09/17/24 12:15 300 MLS/HR Pantoprazole Sodium 40 mg DAILY IV 09/17/24 10:00 09/17/24 12:14 40 MG Examination General: The patient alert and oriented in person place and time. Patient following commands HEENT: Normocephalic, atraumatic, moist mucous membrane Respiratory/pulmonary: Clear lungs bilaterally, vesicular murmurs present in almost all lung ruiz, no associated crackles or wheezes. Abdomen: Obese, Abdomen nondistended, there is no pain to palpation in any of the abdominal quadrants, no palpable masses. Extremities: there is no peripheral edema present at the lower extremities. Peripheral pulses 3+ radial right, 3+ radials soft. 3+ dorsalis pedis right. 3+ dorsalis pedis left Skin: No rashes or pruritus Neurological: Intact cranial nerves with no focal neurologic deficits, muslce tone and bulk conserved, sensation to touch conserved in all extremities, strength is conserved in bilateral upper extremities, strength is conserved in lower extremities, gait was not evaluated. laboratory and microbiology Laboratory Tests 09/17/24 04:43 Test 09/17/24 04:43 Range/Units Serum Glucose 111 H 74-106 mg/dL Problem List/Assessment/Plan Problem List/Assessment/Plan Assessment and Plan: Possible Multiple Sclerosis Exacerbation -Solu Medrol 1000 mg IV daily -Brain MRI:No evidence of acute infarction, intracranial hemorrhage, mass effect or hydrocephalus. Moderate white matter disease consistent with given history of multiple sclerosis. Subcentimeter enhancing lesion in the right frontal white matter consistent with active demyelination. Clinical correlation and continued follow-up is recommended. Likely sebaceous cyst in the right parietal scalp. -MRI cervical spine:Patchy abnormal cord signal throughout the cervical spine consistent with demyelinating disease. No associated enhancement to suggest active demyelination. -MRI thoracic spine:Patchy abnormal cord signal throughout the thoracic spine consistent with demyelinating disease. Questionable enhancement in the midthoracic spine could represent active demyelination. -Protonix 40 mg IV for ulcer prevention Anemia, possibly chronic -Monitor H and H -Ferrous Sulfate 325 mg BID PO Marijuana use -Counseled patient on cessation of marijuana use for over 15 minutes Obesity, 33.8 kg/m2 DVT prophylaxis: Lovenox 40 mg SC daily Case discussed with Dr. Newton Goals of care discussed with the patient and her mother in law for over 20 minutes. FULL CODE. Plan discussed with: Patient, Other (Mother in Law) Date of Service: Sep 17, 2024 Billing Provider: MAGDA NEWTON MD Common Visit Codes: [id number] INP/OBS CARE(HIGH) MARTA FORD RESIDENT Sep 17, 2024 16:19 MAGDA NEWTON MD Sep 23, 2024 20:05
[2024-09-17 19:48] LABS: Urine Protein, UAD 1+ (Negative)
[2024-09-17 19:58] LABS: Amphetamine Screen, Urine Neg (NEGATIVE); Barbiturate Scree,Urine Neg (NEGATIVE); Benzodiazephine Screen, Urine Neg (NEGATIVE); Cannabinoid Screen, Urine Neg (NEGATIVE); Cocaine Screen, Urine Neg (NEGATIVE); Opiate Scree,Urine Neg (NEGATIVE); Phencyclidine Screen, Urine Neg (NEGATIVE)
[2024-09-17] MEDS: cefTRIAXone 1GM/50ML D5W 50 ML IV ONE (22:04)
[2024-09-18] VITALS (8 sets, daily range): BP systolic 90–111; BP diastolic 51–67; PULSE 60–94; RESP 16–18; TEMP 97.6–98.9; O2SAT 95–100
[2024-09-18 06:24] LABS: Hematocrit 24.7 % (36.0-46.0); Hemoglobin 7.6 g/dL (12.2-16.2); Mean Corpuscular Hemoglobin 22.5 pg (28.0-32.0); Mean Corpuscular Volume 73.0 fL (80.0-100.0); Nucleated Red Blood Cells % 0.1 %
[2024-09-18 06:26] LABS: Calcium 9.2 mg/dL (8.7-10.4); Chloride 106 mmol/L (98-107); Potassium 3.9 mmol/L (3.5-5.1); Sodium 141 mmol/L (136-145)
[2024-09-18 06:27] LABS: Anion Gap 8 (5-15); Carbon Dioxide 27 mmol/L (20-31)
[2024-09-18 06:33] LABS: BUN/Creatinine Ratio 15.9 (10.0-20.0); Blood Urea Nitrogen 10 mg/dL (9-23)
[2024-09-18 06:35] LABS: Glucose 123 mg/dL (74-106)
[2024-09-18] MEDS: cefTRIAXone 1GM/50ML D5W 50 ML IV SCH (08:57)
--- NOTE | 2024-09-18 18:24 | DVHPNRES ---
Progress Note Date Seen: Sep 18, 2024 Resident Creating Document: MARTA FORD RESIDENT Medical Necessity Reason Pt with a Central, PICC or Fol: No Subjective Review of Systems Patient is a 34-year-old female with prior medical history of multiple sclerosis diagnosed in 2016, who presents to the ED with chief complaint of left leg weakness. Per the patient, she has had decreased sensation in her left leg associated with decreased mobility. Additionally states, that for last 2 months she has had increased bladder incontinence and vocal/language changes with her words becoming more slurred. She states that she moved to [place] approximately 4 months and has not set up care with a PCP or neurologist. Per her mother in law, the patient did not start treatment for MS until late 2022. She states that the patient was receiving monthly steroid shots under the care of her neurologist in [place], however has not received any since moving here. States that during this time, they have witnessed progression of her symptoms. On evaluation in the ED, initial labs show WBC 4.0, Hb 8.0, Sodium 143, Potassium 3.4, BUN 13, and creatinine 0.81. Chest no evidence of acute disease. Due to suspicion of MS flare, patient was admitted for corticosteroid therapy and further work up. She was seen by Neurology who recommended pulse dose methylprednisolone for 5 days and MRI brain and spine. MRI brain shows no evidence of acute infarction, intracranial hemorrhage, mass effect or hydrocephalus, moderate paraventricular and deep white matter abnormality consistent with MS. Subcentimeter enhancing lesion in the right frontal white matter consistent wit active demyelination. MRI Cervical spine shows patchy abnormal cord signal throughout the cervical spine consistent with demyelinating disease, but no enhancement to suggest active demyelination. MRI thoracic spine shows patchy abnormal cord signal consistent with MS, questionable enhancement in midthoracic spine. Patient seen at bedside. Patient is oriented in person, place, and time. States that she feels better, has slept well, tolerating oral diet, and states numbing sensation in left leg is slowly improving. Follow-up labs show urinalysis significant for UTI. Vitals have been stable. She has been started on IV ceftriaxone and will continue on IV steroid pulse dose. We will continue to monitor. Objective vital signs Vital Sign Date Time Temp Pulse Resp B/P (MAP) Pulse Ox O2 Delivery O2 Flow Rate FiO2 09/18/24 17:00 97.6 60 18 108/67 (81) 95 97.6 09/18/24 08:00 Room Air* 0 21 Total Intake and Output 09/17/24 09/17/24 09/18/24 15:00 23:00 07:00 Intake Total 250 ml 415 ml 200 ml Balance 250 ml 415 ml 200 ml medications Current Medications Medications Dose Ordered Sig/Lorena Route Start Time Stop Time Status Last Admin Dose Admin Acetaminophen/ Hydrocodone Bitart 1 tab Q4HP PRN PO 09/16/24 14:30 Ondansetron HCl 4 mg Q4HP PRN IV 09/16/24 14:30 Docusate Sodium 100 mg BIDPRN PRN PO 09/16/24 14:30 Acetaminophen 650 mg Q6HP PRN PO 09/16/24 14:30 Ferrous Sulfate 325 mg BIDWM PO 09/16/24 18:00 09/18/24 17:05 325 MG Lorazepam 1 mg ONCE PRN IV 09/16/24 22:30 Methylprednisolone Sodium Succinate 1000 mg/Sodium Chloride 250 ml @ 300 mls/hr DAILY IV 09/17/24 10:00 09/20/24 23:00 09/18/24 09:31 300 MLS/HR Pantoprazole Sodium 40 mg DAILY IV 09/17/24 10:00 09/18/24 08:56 40 MG Ceftriaxone Sodium 50 ml @ 100 mls/hr DAILY@09 IV 09/18/24 09:00 09/18/24 08:57 100 MLS/HR Examination General: The patient alert and oriented in person place and time. Patient following commands HEENT: Normocephalic, atraumatic, moist mucous membrane Respiratory/pulmonary: Clear lungs bilaterally, vesicular murmurs present in almost all lung ruiz, no associated crackles or wheezes. Abdomen: Obese, Abdomen nondistended, there is no pain to palpation in any of the abdominal quadrants, no palpable masses. Extremities: there is no peripheral edema present at the lower extremities. Peripheral pulses 3+ radial right, 3+ radials soft. 3+ dorsalis pedis right. 3+ dorsalis pedis left Skin: No rashes or pruritus Neurological: Intact cranial nerves with no focal neurologic deficits, muslce tone and bulk conserved, sensation to touch conserved in all extremities, strength is conserved in bilateral upper extremities, strength is conserved in lower extremities, gait was not evaluated. laboratory and microbiology Laboratory Tests 09/18/24 05:14 Test 09/18/24 05:14 Range/Units Serum Glucose 123 H 74-106 mg/dL Problem List/Assessment/Plan Problem List/Assessment/Plan Assessment and Plan: Possible Multiple Sclerosis Exacerbation -Solu Medrol 1000 mg IV daily -Brain MRI:No evidence of acute infarction, intracranial hemorrhage, mass effect or hydrocephalus. Moderate white matter disease consistent with given history of multiple sclerosis. Subcentimeter enhancing lesion in the right frontal white matter consistent with active demyelination. Clinical correlation and continued follow-up is recommended. Likely sebaceous cyst in the right parietal scalp. -MRI cervical spine:Patchy abnormal cord signal throughout the cervical spine consistent with demyelinating disease. No associated enhancement to suggest active demyelination. -MRI thoracic spine:Patchy abnormal cord signal throughout the thoracic spine consistent with demyelinating disease. Questionable enhancement in the midthoracic spine could represent active demyelination. -Protonix 40 mg IV for ulcer prevention Acute Cystitis with Hematuria -Ceftriaxone 1g IV daily -Urine culture pending Anemia, possibly chronic -Monitor H and H -Ferrous Sulfate 325 mg BID PO Obesity, 33.8 kg/m2 DVT prophylaxis: Lovenox 40 mg SC daily Case discussed with Dr. Newton Goals of care discussed with the patient and her mother in law for over 20 minutes. FULL CODE. Plan discussed with: Patient, Other (Mother in Law: Yamila) Date of Service: Sep 18, 2024 Billing Provider: MAGDA NEWTON MD Common Visit Codes: [id number] INP/OBS CARE(HIGH) MARTA FORD RESIDENT Sep 18, 2024 18:23 MAGDA NEWTON MD Sep 23, 2024 20:17
--- NOTE | 2024-09-18 21:10 | DVHPN2 ---
Progress Note - Dictate Date Seen: Sep 18, 2024 Medical Necessity Reason Pt with a Central, PICC or Fol: No Subjective Ms. Brayden is a 34 years old right-handed female with a history of anemia, obesity, multiple sclerosis, she present to the [facility] on 09[facility]16[facility]2024 with a chief complaint of weakness in the left arm than leg since 09/15/2024, I have seen and examined the patient, I have talked to her nurse, she is doing fine, no new complaints, she reports feeling better Her speech is better, she walked to the door today Social service input appreciated UDS, 09/17/2024: Negative Urinalysis, 05/18/2024: WBC: 328, urine leukocyte esterase: 3+ WBC/HB/PLT/MCV, 09/16/2024: 4/8/236/72.2 BMP 09/16/2024: Unremarkable CMP, 08/2324: Unremarkable Beta hCG, 09/16/24: 0.1 Chest x-ray, 09/17/2024: No evidence of acute disease. MRI brain WWO, 09/17/2024: No evidence of acute infarction, intracranial hemorrhage, mass effect or hydrocephalus. Moderate white matter disease consistent with given history of multiple sclerosis. Subcentimeter enhancing lesion in the right frontal white matter consistent with active demyelination. Clinical correlation and continued follow-up is recommended. Likely sebaceous cyst in the right parietal scalp. MRI C-spine o, 09/17/2024: 1. No significant posterior disc disease, spinal canal or neural foraminal narrowing. 2. Patchy abnormal cord signal throughout the cervical spine consistent with demyelinating disease. No associated enhancement to suggest active demyelination. Clinical correlation and continued follow-up is recommended. MRI T-spine, 09/17/2024: 1. No significant posterior disc disease, central canal or neural foraminal narrowing. 2. Limited by motion, particularly on the axial images. Patchy abnormal cord signal throughout the thoracic spine consistent with demyelinating disease. Questionable enhancement in the midthoracic spine could represent active demyelination. Clinical correlation and continued follow- up is recommended. vital signs Vital Sign Date Time Temp Pulse Resp B/P (MAP) Pulse Ox O2 Delivery O2 Flow Rate FiO2 09/18/24 17:00 97.6 60 18 108/67 (81) 95 97.6 09/18/24 08:00 Room Air* 0 21 Total Intake and Output 09/17/24 09/17/24 09/18/24 15:00 23:00 07:00 Intake Total 250 ml 415 ml 200 ml Balance 250 ml 415 ml 200 ml medications Current Medications Medications Dose Ordered Sig/Lorena Route Start Time Stop Time Status Last Admin Dose Admin Acetaminophen/ Hydrocodone Bitart 1 tab Q4HP PRN PO 09/16/24 14:30 Ondansetron HCl 4 mg Q4HP PRN IV 09/16/24 14:30 Docusate Sodium 100 mg BIDPRN PRN PO 09/16/24 14:30 Acetaminophen 650 mg Q6HP PRN PO 09/16/24 14:30 Ferrous Sulfate 325 mg BIDWM PO 09/16/24 18:00 09/18/24 17:05 325 MG Lorazepam 1 mg ONCE PRN IV 09/16/24 22:30 Methylprednisolone Sodium Succinate 1000 mg/Sodium Chloride 250 ml @ 300 mls/hr DAILY IV 09/17/24 10:00 09/20/24 23:00 09/18/24 09:31 300 MLS/HR Pantoprazole Sodium 40 mg DAILY IV 09/17/24 10:00 09/18/24 08:56 40 MG Ceftriaxone Sodium 50 ml @ 100 mls/hr DAILY@09 IV 09/18/24 09:00 09/18/24 08:57 100 MLS/HR objective General: the patient is well developed and nourished. No acute distress. MENTAL STATUS: Subjective SPEECH, LANGUAGE, HIGHER CORTICAL FUNCTION: no aphasia or dysathria. CRANIAL NERVES: Pupils are equal, round and reactive. EOMs full and conjugate. No nystagmus. Facial sensation intact in all three divisions bilaterally. Mandibular strength intact. Facial muscles symmetrical and strength intact. SENSATION: Sensation to touch and pinprick is normal, no sensory level MOTOR: Normal tone in the upper and lower extremity. Normal muscle bulk. No fasciculations. No abnormal movements or posturing. Muscle strength of the major groups in the extremities is 5/5. REFLEXES: Deep tendon reflexes normal and symmetrical. No pathological reflexes. CEREBELLAR/COORDINATION: Finger to nose hertz bilaterally intentional tremor GAIT/STATION: deferred. laboratory and microbiology Laboratory Tests 09/18/24 05:14 Test 09/18/24 05:14 Range/Units Serum Glucose 123 H 74-106 mg/dL Problem List Reported multiple sclerosis with the following symptoms Gait disturbance Slurred speech Bladder incontinence MR evidence active MS plaque Acute left-sided weakness since 09/15/24, secondary to MS exacerbation Urinary tract infection Assessment/Plan Monitoring Supportive treatment Urine culture Telemetry IV Solu-Medrol 1000 mg daily for five days IV antibiotics GI prophylaxis DVT prophylaxis Up to chair Physical therapy She needs to establish a primary care in the [facility] More recommendation per clinical course This medical document was created using an electronic medical record system with [employer] dictation system. Although this document has been carefully reviewed, there may still be some phonetic and typographical errors. These areas are purely typographical due to imperfections of the software programs, and do not reflect any compromise in the patient's medical care Prognosis Poor Plan discussed with: Patient, Other JERARDO CUMMINGS MD Sep 18, 2024 21:10
[2024-09-19] VITALS (8 sets, daily range): BP systolic 99–111; BP diastolic 53–68; PULSE 62–86; RESP 16–20; TEMP 97.4–98.2; O2SAT 95–100
[2024-09-19 06:43] LABS: Chloride 105 mmol/L (98-107); Hematocrit 23.4 % (36.0-46.0); Hemoglobin 7.2 g/dL (12.2-16.2); Mean Corpuscular Hemoglobin 22.4 pg (28.0-32.0); Mean Corpuscular Volume 73.1 fL (80.0-100.0); Nucleated Red Blood Cells % 0.0 %; Potassium 3.8 mmol/L (3.5-5.1); Sodium 141 mmol/L (136-145)
[2024-09-19 06:44] LABS: Anion Gap 8 (5-15); Carbon Dioxide 28 mmol/L (20-31)
[2024-09-19 06:45] LABS: Calcium 8.8 mg/dL (8.7-10.4)
[2024-09-19 06:49] LABS: BUN/Creatinine Ratio 21.7 (10.0-20.0); Blood Urea Nitrogen 13 mg/dL (9-23); Glucose 104 mg/dL (74-106)
--- NOTE | 2024-09-19 11:38 | DVHPNRES ---
Progress Note Date Seen: Sep 19, 2024 Resident Creating Document: MARTA FORD RESIDENT Medical Necessity Reason Pt with a Central, PICC or Fol: No Subjective Review of Systems Patient is a 34-year-old female with prior medical history of multiple sclerosis diagnosed in 2017, who presents to the ED with chief complaint of left leg weakness. Per the patient, she has had decreased sensation in her left leg associated with decreased mobility. Additionally states, that for last 2 months she has had increased bladder incontinence and vocal/language changes with her words becoming more slurred. She states that she moved to [place] approximately 4 months and has not set up care with a PCP or neurologist. Per her mother in law, the patient did not start treatment for MS until late 2022. She states that the patient was receiving monthly steroid shots under the care of her neurologist in [place], however has not received any since moving here. States that during this time, they have witnessed progression of her symptoms. On evaluation in the ED, initial labs show WBC 4.0, Hb 8.0, Sodium 143, Potassium 3.4, BUN 13, and creatinine 0.81. Chest no evidence of acute disease. Due to suspicion of MS flare, patient was admitted for corticosteroid therapy and further work up. She was seen by Neurology who recommended pulse dose methylprednisolone for 5 days and MRI brain and spine. MRI brain shows no evidence of acute infarction, intracranial hemorrhage, mass effect or hydrocephalus, moderate paraventricular and deep white matter abnormality consistent with MS. Subcentimeter enhancing lesion in the right frontal white matter consistent wit active demyelination. MRI Cervical spine shows patchy abnormal cord signal throughout the cervical spine consistent with demyelinating disease, but no enhancement to suggest active demyelination. MRI thoracic spine shows patchy abnormal cord signal consistent with MS, questionable enhancement in midthoracic spine. Follow up labs showed urinalysis significant for UTI. Cultures were taken and she was started on antibiotics. Patient seen at bedside. Patient is oriented in person, place, and time. States that she feels better, has slept well, tolerating oral diet, having bowel movements, and states that symptoms have improved. She currently denies shortness of breath, worsened weakness, weakness in other extremities, fever, nausea, vomiting, and chest pain. She is able to transfer to the commode without difficulty. Follow-up labs are significant for hemoglobin of 7.2, decreased from 8 on arrival. On further on evaluation, patient states she is currently finishing menstruating and her usual cycles are associated with heavy bleeding with use of approximately 6 pads in one day. She will continue on IV methylprednisolone, IV antibiotics, and p.o. ferrous sulfate. We will continue to monitor. Objective vital signs Vital Sign Date Time Temp Pulse Resp B/P (MAP) Pulse Ox O2 Delivery O2 Flow Rate FiO2 09/19/24 09:00 97.9 86 16 107/68 (81) 95 97.9 09/19/24 08:00 Room Air* 0 21 Total Intake and Output 09/18/24 09/18/24 09/19/24 15:00 23:00 07:00 Intake Total 899 ml 500 ml Balance 899 ml 500 ml medications Current Medications Medications Dose Ordered Sig/Lorena Route Start Time Stop Time Status Last Admin Dose Admin Acetaminophen/ Hydrocodone Bitart 1 tab Q4HP PRN PO 09/16/24 14:30 Ondansetron HCl 4 mg Q4HP PRN IV 09/16/24 14:30 Docusate Sodium 100 mg BIDPRN PRN PO 09/16/24 14:30 Acetaminophen 650 mg Q6HP PRN PO 09/16/24 14:30 Ferrous Sulfate 325 mg BIDWM PO 09/16/24 18:00 09/19/24 08:49 325 MG Lorazepam 1 mg ONCE PRN IV 09/16/24 22:30 Methylprednisolone Sodium Succinate 1000 mg/Sodium Chloride 250 ml @ 300 mls/hr DAILY IV 09/17/24 10:00 09/20/24 23:00 09/19/24 09:37 300 MLS/HR Pantoprazole Sodium 40 mg DAILY IV 09/17/24 10:00 09/19/24 08:49 40 MG Ceftriaxone Sodium 50 ml @ 100 mls/hr DAILY@09 IV 09/18/24 09:00 09/19/24 08:49 100 MLS/HR Examination General: The patient alert and oriented in person place and time. Patient following commands HEENT: Normocephalic, atraumatic, moist mucous membrane Respiratory/pulmonary: Clear lungs bilaterally, vesicular murmurs present in almost all lung ruiz, no associated crackles or wheezes. Abdomen: Obese, Abdomen nondistended, there is no pain to palpation in any of the abdominal quadrants, no palpable masses. Extremities: there is no peripheral edema present at the lower extremities. Peripheral pulses 3+ radial right, 3+ radials soft. 3+ dorsalis pedis right. 3+ dorsalis pedis left Skin: No rashes or pruritus Neurological: Intact cranial nerves with no focal neurologic deficits, muslce tone and bulk conserved, sensation to touch conserved in all extremities, strength is conserved in bilateral upper extremities, strength is conserved in lower extremities, gait was not evaluated. laboratory and microbiology Laboratory Tests 09/19/24 05:24 Test 09/19/24 05:24 Range/Units Serum Glucose 104 74-106 mg/dL Microbiology Date/Time Source Procedure Growth Status 09/17/24 19:33 Voided Urine Urine Culture - Preliminary Resulted Problem List/Assessment/Plan Problem List/Assessment/Plan Assessment and Plan: Possible Multiple Sclerosis Exacerbation -Solu Medrol 1000 mg IV daily -Brain MRI:No evidence of acute infarction, intracranial hemorrhage, mass effect or hydrocephalus. Moderate white matter disease consistent with given history of multiple sclerosis. Subcentimeter enhancing lesion in the right frontal white matter consistent with active demyelination. Clinical correlation and continued follow-up is recommended. Likely sebaceous cyst in the right parietal scalp. -MRI cervical spine:Patchy abnormal cord signal throughout the cervical spine consistent with demyelinating disease. No associated enhancement to suggest active demyelination. -MRI thoracic spine:Patchy abnormal cord signal throughout the thoracic spine consistent with demyelinating disease. Questionable enhancement in the midthoracic spine could represent active demyelination. -Protonix 40 mg IV for ulcer prevention Acute Cystitis with Hematuria -Ceftriaxone 1g IV daily -Urine culture: Preliminary: > 100,000 CFU/mL mixed renan, > 3 colony types, possible contamination Iron Deficiency Anemia, possibly due to metrorrhagia -Monitor H and H -Ferrous Sulfate 325 mg BID PO Obesity, 33.8 kg/m2 DVT prophylaxis: Lovenox 40 mg SC daily Case discussed with Dr. Cleary Patient is pending completing of pulse dose regimen. I have counseled her that she needs to establish care with a PCP here in the area that can refer her to a neurologist to reinitiate treatment for MS. Goals of care discussed with the patient and her mother in law, Yamila ([phone]), for over 20 minutes. FULL CODE. Plan discussed with: Patient, Other (Mother In Law (Yamila)) MARTA FORD RESIDENT Sep 19, 2024 11:38
[2024-09-19] MEDS: ENOXAPARIN SOD 40 MG/0.4 ML SYRINGE SC ONE (12:13)
--- NOTE | 2024-09-19 21:19 | DVHPN2 ---
Progress Note - Dictate Date Seen: Sep 19, 2024 Medical Necessity Reason Pt with a Central, PICC or Fol: No Subjective Ms. Brayden is a 34 years old right-handed female with a history of anemia, obesity, multiple sclerosis, she present [facility] the [facility] on [facility]24 with a chief complaint of weakness in the left arm than leg since 09/15/2024, I have seen and examined the patient, I have talked to her nurse, she is doing fine, no new complaints, UDS, 09/17/2024: Negative Urinalysis, 05/18/2024: WBC: 328, urine leukocyte esterase: 3+ WBC/HB/PLT/MCV, 09/16/2024: 4/8/236/72.2 BMP 09/16/2024: Unremarkable CMP, 08/2324: Unremarkable Beta hCG, 09/16/24: 0.1 Chest x-ray, 09/17/2024: No evidence of acute disease. MRI brain WWO, 09/17/2024: No evidence of acute infarction, intracranial hemorrhage, mass effect or hydrocephalus. Moderate white matter disease consistent with given history of multiple sclerosis. Subcentimeter enhancing lesion in the right frontal white matter consistent with active demyelination. Clinical correlation and continued follow-up is recommended. Likely sebaceous cyst in the right parietal scalp. MRI C-spine wwo, 09/17/2024: 1. No significant posterior disc disease, spinal canal or neural foraminal narrowing. 2. Patchy abnormal cord signal throughout the cervical spine consistent with demyelinating disease. No associated enhancement to suggest active demyelination. Clinical correlation and continued follow-up is recommended. MRI T-spine, 09/17/2024: 1. No significant posterior disc disease, central canal or neural foraminal narrowing. 2. Limited by motion, particularly on the axial images. Patchy abnormal cord signal throughout the thoracic spine consistent with demyelinating disease. Questionable enhancement in the midthoracic spine could represent active demyelination. Clinical correlation and continued follow- up is recommended. vital signs Vital Sign Date Time Temp Pulse Resp B/P (MAP) Pulse Ox O2 Delivery O2 Flow Rate FiO2 09/19/24 20:47 97.4 82 16 111/54 (73) 99 97.4 09/19/24 08:00 Room Air* 0 21 Total Intake and Output 09/18/24 09/18/24 09/19/24 15:00 23:00 07:00 Intake Total 899 ml 500 ml Balance 899 ml 500 ml medications Current Medications Medications Dose Ordered Sig/Lorena Route Start Time Stop Time Status Last Admin Dose Admin Acetaminophen/ Hydrocodone Bitart 1 tab Q4HP PRN PO 09/16/24 14:30 Ondansetron HCl 4 mg Q4HP PRN IV 09/16/24 14:30 Docusate Sodium 100 mg BIDPRN PRN PO 09/16/24 14:30 Acetaminophen 650 mg Q6HP PRN PO 09/16/24 14:30 Ferrous Sulfate 325 mg BIDWM PO 09/16/24 18:00 09/19/24 17:35 325 MG Lorazepam 1 mg ONCE PRN IV 09/16/24 22:30 Methylprednisolone Sodium Succinate 1000 mg/Sodium Chloride 250 ml @ 300 mls/hr DAILY IV 09/17/24 10:00 09/20/24 23:00 09/19/24 09:37 300 MLS/HR Pantoprazole Sodium 40 mg DAILY IV 09/17/24 10:00 09/19/24 08:49 40 MG Ceftriaxone Sodium 50 ml @ 100 mls/hr DAILY@09 IV 09/18/24 09:00 09/19/24 08:49 100 MLS/HR Enoxaparin Sodium 40 mg DAILY SC 09/20/24 10:00 objective General: the patient is well developed and nourished. No acute distress. MENTAL STATUS: Subjective SPEECH, LANGUAGE, HIGHER CORTICAL FUNCTION: no aphasia or dysathria. CRANIAL NERVES: Pupils are equal, round and reactive. EOMs full and conjugate. No nystagmus. Facial sensation intact in all three divisions bilaterally. Mandibular strength intact. Facial muscles symmetrical and strength intact. SENSATION: Sensation to touch and pinprick is normal, no sensory level MOTOR: Normal tone in the upper and lower extremity. Normal muscle bulk. No fasciculations. No abnormal movements or posturing. Muscle strength of the major groups in the extremities is 5/5. REFLEXES: Deep tendon reflexes normal and symmetrical. No pathological reflexes. CEREBELLAR/COORDINATION: Finger to nose hertz bilaterally intentional tremor GAIT/STATION: deferred. laboratory and microbiology Laboratory Tests 09/19/24 05:24 Test 09/19/24 05:24 Range/Units Serum Glucose 104 74-106 mg/dL Problem List Reported multiple sclerosis with the following symptoms Gait disturbance Slurred speech Bladder incontinence MR evidence active MS plaque Acute left-sided weakness since 09/15/24, secondary to MS exacerbation Urinary tract infection Assessment/Plan Monitoring Supportive treatment Urine culture Telemetry IV Solu-Medrol 1000 mg daily for five days IV antibiotics GI prophylaxis DVT prophylaxis Up to chair Physical therapy She needs to establish a primary care in the [facility] More recommendation per clinical course This medical document was created using an electronic medical record system with [employer] dictation system. Although this document has been carefully reviewed, there may still be some phonetic and typographical errors. These areas are purely typographical due to imperfections of the software programs, and do not reflect any compromise in the patient's medical care Prognosis poor Dietary Evaluation Review Comments: Wt management upon d/c Expected Outcomes/Goals: Improved nutrition related lab values, gradual wt loss and improve gait. Plan discussed with: Patient, Other JERARDO CUMMINGS MD Sep 19, 2024 21:19
[2024-09-20] VITALS (8 sets, daily range): BP systolic 89–107; BP diastolic 42–86; PULSE 71–114; RESP 16–20; TEMP 97.5–98.1; O2SAT 96–100
[2024-09-20] MEDS: ENOXAPARIN SOD 40 MG/0.4 ML SYRINGE SC SCH (09:38)
--- NOTE | 2024-09-20 12:04 | DVHPNRES ---
Progress Note Date Seen: Sep 20, 2024 Resident Creating Document: VANESSA GENTILE RESIDENT Medical Necessity Reason Pt with a Central, PICC or Fol: No Subjective Review of Systems Patient is a 34-year-old female with prior medical history of multiple sclerosis diagnosed in 2016, who presents to the ED with chief complaint of left leg weakness. Per the patient, she has had decreased sensation in her left leg associated with decreased mobility. Additionally states, that for last 2 months she has had increased bladder incontinence and vocal/language changes with her words becoming more slurred. She states that she moved to [place] approximately 4 months and has not set up care with a PCP or neurologist. Per her mother in law, the patient did not start treatment for MS until late 2022. She states that the patient was receiving monthly steroid shots under the care of her neurologist in [place], however has not received any since moving here. States that during this time, they have witnessed progression of her symptoms. On evaluation in the ED, initial labs show WBC 4.0, Hb 8.0, Sodium 143, Potassium 3.4, BUN 13, and creatinine 0.81. Chest no evidence of acute disease. Due to suspicion of MS flare, patient was admitted for corticosteroid therapy and further work up. She was seen by Neurology who recommended pulse dose methylprednisolone for 5 days and MRI brain and spine. MRI brain shows no evidence of acute infarction, intracranial hemorrhage, mass effect or hydrocephalus, moderate paraventricular and deep white matter abnormality consistent with MS. Subcentimeter enhancing lesion in the right frontal white matter consistent wit active demyelination. MRI Cervical spine shows patchy abnormal cord signal throughout the cervical spine consistent with demyelinating disease, but no enhancement to suggest active demyelination. MRI thoracic spine shows patchy abnormal cord signal consistent with MS, questionable enhancement in midthoracic spine. Follow up labs showed urinalysis significant for UTI. Cultures were taken and she was started on antibiotics. Patient seen at bedside. Patient appears comfortable, alert x3, she does not complain of any new symptoms, denies headaches,dizziness, nausea, vomitings, diarrhea. The last dose of IV steroids are given today and she can be possibly discharge tomorrow. Objective vital signs Vital Sign Date Time Temp Pulse Resp B/P (MAP) Pulse Ox O2 Delivery O2 Flow Rate FiO2 09/20/24 08:39 97.7 74 16 97/60 (72) 100 97.7 09/19/24 20:00 Room Air* 0 21 Total Intake and Output 09/19/24 09/19/24 09/20/24 15:00 23:00 07:00 Intake Total 200 ml 200 ml Balance 200 ml 200 ml medications Current Medications Medications Dose Ordered Sig/Lorena Route Start Time Stop Time Status Last Admin Dose Admin Acetaminophen/ Hydrocodone Bitart 1 tab Q4HP PRN PO 09/16/24 14:30 Ondansetron HCl 4 mg Q4HP PRN IV 09/16/24 14:30 Docusate Sodium 100 mg BIDPRN PRN PO 09/16/24 14:30 Acetaminophen 650 mg Q6HP PRN PO 09/16/24 14:30 Ferrous Sulfate 325 mg BIDWM PO 09/16/24 18:00 09/20/24 09:38 325 MG Lorazepam 1 mg ONCE PRN IV 09/16/24 22:30 Methylprednisolone Sodium Succinate 1000 mg/Sodium Chloride 250 ml @ 300 mls/hr DAILY IV 09/17/24 10:00 09/20/24 23:00 09/19/24 09:37 300 MLS/HR Pantoprazole Sodium 40 mg DAILY IV 09/17/24 10:00 09/20/24 09:38 40 MG Ceftriaxone Sodium 50 ml @ 100 mls/hr DAILY@09 IV 09/18/24 09:00 09/20/24 09:38 100 MLS/HR Enoxaparin Sodium 40 mg DAILY SC 09/20/24 10:00 09/20/24 09:38 40 MG Examination General: Patient alert and oriented in person, place and time. Patient following commands. HEENT: Normocephalic, atraumatic, moist mucous membranes Respiratory/pulmonary: Clear lungs bilaterally, vesicular murmurs present in almost all lung ruiz, no associated crackles or wheezes. Cardiovascular: Normal heart sounds S1 and S2 with no associated murmurs Abdomen: Abdomen nondistended, there is no pain to palpation in any of the abdominal quadrants, no palpable masses. Extremities: There is no peripheral edema present at the lower extremities. Peripheral Pulses: 3+ Radial (R). 3+ Radial (L). 3+ Dorsalis pedis (R). 3+ Dorsalis pedis(L) Skin: No rashes or pruritus, there is no sacral edema present at this time. Neurological: Intact cranial nerves with no focal neurologic deficits, muslce tone and bulk conserved, sensation to touch conserved in all extremities, strength is conserved in bilateral upper extremities, strength is conserved in lower extremities, gait was not evaluated. laboratory and microbiology Laboratory Tests 09/19/24 05:24 Test 09/19/24 05:24 Range/Units Serum Glucose 104 74-106 mg/dL Microbiology Date/Time Source Procedure Growth Status 09/17/24 19:33 Voided Urine Urine Culture - Preliminary Resulted Problem List/Assessment/Plan Problem List/Assessment/Plan Possible Multiple Sclerosis Exacerbation -Solu Medrol 1000 mg IV daily -Brain MRI:No evidence of acute infarction, intracranial hemorrhage, mass effect or hydrocephalus. Moderate white matter disease consistent with given history of multiple sclerosis. Subcentimeter enhancing lesion in the right frontal white matter consistent with active demyelination. Clinical correlation and continued follow-up is recommended. Likely sebaceous cyst in the right parietal scalp. -MRI cervical spine:Patchy abnormal cord signal throughout the cervical spine consistent with demyelinating disease. No associated enhancement to suggest active demyelination. -MRI thoracic spine:Patchy abnormal cord signal throughout the thoracic spine consistent with demyelinating disease. Questionable enhancement in the midthoracic spine could represent active demyelination. -Protonix 40 mg IV for ulcer prevention Acute Cystitis with Hematuria -Ceftriaxone 1g IV daily -Urine culture: Preliminary: > 100,000 CFU/mL mixed renan, > 3 colony types, possible contamination Iron Deficiency Anemia, possibly due to metrorrhagia -Monitor H and H -Ferrous Sulfate 325 mg BID PO Obesity, 33.8 kg/m2 DVT prophylaxis: Lovenox 40 mg SC daily Case discussed with Dr. Cleary Patient is pending completing of pulse dose regimen. I have counseled her that she needs to establish care with a PCP here in the area that can refer her to a neurologist to reinitiate treatment for MS. Goals of care discussed with the patient and her mother in law, Yamila ([phone]), for over 20 minutes. FULL CODE. Case disscussed with Dr. Aggarwal Plan discussed with: Patient Dietary Evaluation Review Comments: Wt management upon d/c Expected Outcomes/Goals: Improved nutrition related lab values, gradual wt loss and improve gait. Date of Service: Sep 20, 2024 Billing Provider: MIKE AGGARWAL DO Common Visit Codes: 25069-[id number] INP/OBS CARE(HIGH) VANESSA GENTILE RESIDENT Sep 20, 2024 12:04 MIKE AGGARWAL DO Sep 22, 2024 08:40
--- NOTE | 2024-09-20 22:31 | DVHPN2 ---
Progress Note - Dictate Date Seen: Sep 20, 2024 Medical Necessity Reason Pt with a Central, PICC or Fol: No Subjective MsLinnette Owen is a 34 years old right-handed female with a history of anemia, obesity, multiple sclerosis, she present to the [facility] on 09/16/2024 with a chief complaint of weakness in the left arm than leg since 09/15/2024, I have seen and examined the patient, I have talked to her nurse, she reports doing fine, no new complaints He walked today UDS, 09/17/2024: Negative Urinalysis, 05/18/2024: WBC: 328, urine leukocyte esterase: 3+ WBC/HB/PLT/MCV, 09/16/2024: 4/8/236/72.2 BMP 09/16/2024: Unremarkable CMP, 08/2324: Unremarkable Beta hCG, 09/16/24: 0.1 Chest x-ray, 09/17/2024: No evidence of acute disease. MRI brain WWO, 09/17/2024: No evidence of acute infarction, intracranial hemorrhage, mass effect or hydrocephalus. Moderate white matter disease consistent with given history of multiple sclerosis. Subcentimeter enhancing lesion in the right frontal white matter consistent with active demyelination. Clinical correlation and continued follow-up is recommended. Likely sebaceous cyst in the right parietal scalp. MRI C-spine o, 09/17/2024: 1. No significant posterior disc disease, spinal canal or neural foraminal narrowing. 2. Patchy abnormal cord signal throughout the cervical spine consistent with demyelinating disease. No associated enhancement to suggest active demyelination. Clinical correlation and continued follow-up is recommended. MRI T-spine, 09/17/2024: 1. No significant posterior disc disease, central canal or neural foraminal narrowing. 2. Limited by motion, particularly on the axial images. Patchy abnormal cord signal throughout the thoracic spine consistent with demyelinating disease. Questionable enhancement in the midthoracic spine could represent active demyelination. Clinical correlation and continued follow- up is recommended. vital signs Vital Sign Date Time Temp Pulse Resp B/P (MAP) Pulse Ox O2 Delivery O2 Flow Rate FiO2 09/20/24 16:44 97.6 93 16 107/86 (93) 96 97.6 09/20/24 08:20 Room Air* 0 21 Total Intake and Output 09/19/24 09/19/2425 15:00 23:00 07:00 Intake Total 200 ml 200 ml Balance 200 ml 200 ml medications Current Medications Medications Dose Ordered Sig/Lorena Route Start Time Stop Time Status Last Admin Dose Admin Acetaminophen/ Hydrocodone Bitart 1 tab Q4HP PRN PO 09/16/24 14:30 Ondansetron HCl 4 mg Q4HP PRN IV 09/16/24 14:30 Docusate Sodium 100 mg BIDPRN PRN PO 09/16/24 14:30 Acetaminophen 650 mg Q6HP PRN PO 09/16/24 14:30 Ferrous Sulfate 325 mg BIDWM PO 09/16/24 18:00 09/20/24 18:18 325 MG Lorazepam 1 mg ONCE PRN IV 09/16/24 22:30 Methylprednisolone Sodium Succinate 1000 mg/Sodium Chloride 250 ml @ 300 mls/hr DAILY IV 09/17/24 10:00 09/20/24 23:00 09/20/24 10:00 300 MLS/HR Pantoprazole Sodium 40 mg DAILY IV 09/17/24 10:00 09/20/24 09:38 40 MG Ceftriaxone Sodium 50 ml @ 100 mls/hr DAILY@09 IV 09/18/24 09:00 09/20/24 09:38 100 MLS/HR Enoxaparin Sodium 40 mg DAILY SC 09/20/24 10:00 09/20/24 09:38 40 MG objective General: the patient is well developed and nourished. No acute distress. MENTAL STATUS: Subjective SPEECH, LANGUAGE, HIGHER CORTICAL FUNCTION: no aphasia or dysathria. CRANIAL NERVES: Pupils are equal, round and reactive. EOMs full and conjugate. No nystagmus. Facial sensation intact in all three divisions bilaterally. Mandibular strength intact. Facial muscles symmetrical and strength intact. SENSATION: Sensation to touch and pinprick is normal, no sensory level MOTOR: Normal tone in the upper and lower extremity. Normal muscle bulk. No fasciculations. No abnormal movements or posturing. Muscle strength of the major groups in the extremities is 5/5. REFLEXES: Deep tendon reflexes normal and symmetrical. No pathological reflexes. CEREBELLAR/COORDINATION: Finger to nose hertz bilaterally intentional tremor GAIT/STATION: deferred. laboratory and microbiology Laboratory Tests 09/19/24 05:24 Test 09/19/24 05:24 Range/Units Serum Glucose 104 74-106 mg/dL Problem List Reported multiple sclerosis with the following symptoms Gait disturbance Slurred speech Bladder incontinence MR evidence active MS plaque Acute left-sided weakness since 09/15/24, secondary to MS exacerbation Urinary tract infection Assessment/Plan Monitoring Supportive treatment Urine culture Telemetry IV Solu-Medrol 1000 mg daily for five days IV antibiotics GI prophylaxis DVT prophylaxis Up to chair Physical therapy She needs to establish a primary care in the [facility] More recommendation per clinical course This medical document was created using an electronic medical record system with [employer] dictation system. Although this document has been carefully reviewed, there may still be some phonetic and typographical errors. These areas are purely typographical due to imperfections of the software programs, and do not reflect any compromise in the patient's medical care Prognosis poor Dietary Evaluation Review Comments: Wt management upon d/c Expected Outcomes/Goals: Improved nutrition related lab values, gradual wt loss and improve gait. Plan discussed with: Patient, Other JERARDO CUMMINGS MD Sep 20, 2024 22:31
[2024-09-21 01:00] VITALS: BP 98/54; PULSE 89; RESP 18; TEMP 98.1; O2SAT 98
[2024-09-21 05:00] VITALS: BP 103/61; PULSE 83; RESP 20; TEMP 98.1; O2SAT 100
[2024-09-21 06:31] LABS: Hematocrit 30.3 % (36.0-46.0); Hemoglobin 9.3 g/dL (12.2-16.2); Mean Corpuscular Hemoglobin 22.9 pg (28.0-32.0); Mean Corpuscular Volume 74.8 fL (80.0-100.0); Nucleated Red Blood Cells % 0.1 %
[2024-09-21 08:20] VITALS: PULSE 87; RESP 16; O2SAT 100
[2024-09-21 08:52] VITALS: BP 117/73; PULSE 87; RESP 16; TEMP 97.5; O2SAT 100
[2024-09-21 12:52] VITALS: BP 109/69; PULSE 68; RESP 16; TEMP 97.5; O2SAT 100
[2024-09-21 13:17] VITALS: TEMP 36.4
--- NOTE | 2024-09-21 14:49 | DVHDSRES ---
Discharge Summary Date of Admission Resident Creating Document: MARTA FORD RESIDENT Sep 16, 2024 at 14:19 Date of Discharge: Sep 21, 2024 Admitting Diagnosis Generalized Weakness Wounds: No wounds Labs/Diagnostic Data: Laboratory Results Test 09/21/24 05:28 09/19/24 05:24 09/17/24 19:33 09/17/24 04:43 White Blood Count 10.3 10^3/uL (4.4-10.8) Red Blood Count 4.06 10^6/uL (4.0-5.20) Hemoglobin 9.3 g/dL (12.2-16.2) Hematocrit 30.3 % (36.0-46.0) Mean Corpuscular Volume 74.8 fL (80.0-100.0) Mean Corpuscular Hemoglobin 22.9 pg (28.0-32.0) Mean Corpuscular Hemoglobin Concent 30.6 g/dL (32.0-36.0) Red Cell Distribution Width 21.3 % (11.8-14.3) Platelet Count 388 10^3/uL (140-450) Mean Platelet Volume 10.5 fL (6.9-10.8) Neutrophils (%) (Auto) 93.5 % (37.0-80.0) Lymphocytes (%) (Auto) 5.6 % (10.0-50.0) Monocytes (%) (Auto) 0.8 % (0.0-12.0) Eosinophils (%) (Auto) 0.0 % (0.0-7.0) Basophils (%) (Auto) 0.1 % (0.0-2.0) Neutrophils # (Auto) 9.7 10 ^3/uL (1.6-8.6) Lymphocytes # (Auto) 0.6 10 ^3/uL (0.4-5.4) Monocytes # (Auto) 0.1 10 ^3/uL (0-1.3) Eosinophils # (Auto) 0 10 ^3/uL (0-0.8) Basophils # (Auto) 0 10 ^3/uL (0-0.2) Nucleated Red Blood Cells 0.1 % Sodium Level 141 mmol/L (136-145) Potassium Level 3.8 mmol/L (3.5-5.1) Chloride Level 105 mmol/L (98-107) Carbon Dioxide Level 28 mmol/L (20-31) Anion Gap 8 (5-15) Blood Urea Nitrogen 13 mg/dL (9-23) Creatinine 0.60 mg/dL (0.550-1.02) Glomerular Filtration Rate Calc 121 mL/min (>90) BUN/Creatinine Ratio 21.7 (10.0-20.0) Serum Glucose 104 mg/dL (74-106) Calcium Level 8.8 mg/dL (8.7-10.4) Urine Color Colorless (Yellow) Urine Clarity Turbid (Clear) Urine pH 6.0 (5.0-9.0) Urine Specific Matthews 1.027 (1.001-1.035) Urine Protein 1+ (Negative) Urine Ketones Trace (Negative) Urine Blood 3+ /uL (Negative) Urine Nitrite Negative (Negative) Urine Bilirubin Negative (Negative) Urine Urobilinogen Normal mg/dL (Negative) Urine Leukocyte Esterase 3+ /uL (Negative) Urine RBC 59 /hpf (0 - 4) Urine Microscopic WBC 328 /HPF (0-5) Urine Squamous Epithelial Cells Few /hpf (<5) Urine Bacteria Few /hpf (None Seen) Urine Glucose Normal mg/dL (Normal) Urine Opiates Screen Neg (NEGATIVE) Urine Fentanyl Screen Neg (NEGATIVE) Urine Barbiturates Screen Neg (NEGATIVE) Urine Phencyclidine Screen Neg (NEGATIVE) Urine Amphetamines Screen Neg (NEGATIVE) Urine Benzodiazepines Screen Neg (NEGATIVE) Urine Cocaine Screen Neg (NEGATIVE) Urine Cannabinoids Screen Neg (NEGATIVE) Iron Level 246 ug/dL (50-170) Total Iron Binding Capacity 293 ug/dL (250-425) Percent Iron Saturation 84.0 % (15-50) Ferritin 9.1 ng/mL (10-291) Total Bilirubin 0.3 mg/dL (0.2-1.0) Aspartate Amino Transferase (AST) 11 U/L (13-40) Alanine Aminotransferase (ALT) < 9 U/L (7-40) Alkaline Phosphatase 76 U/L (46-116) Total Protein 7.3 g/dL (5.7-8.2) Albumin 4.0 g/dL (3.2-4.8) Vitamin B12 Level 595 pg/mL (211-911) Folic Acid 10.06 ng/mL (>5.38) Test 09/16/24 22:50 Beta HCG, Quantitative 0.1 mIU/mL (1.5-4.2) Other Laboratory Tests 09/21/24 05:28 09/19/24 05:24 Brief Hx & Hospital Course: Patient is a 34-year-old female with prior medical history of multiple sclerosis diagnosed in 2016, who presents to the ED with chief complaint of left leg weakness. Per the patient, she has had decreased sensation in her left leg associated with decreased mobility. Additionally states, that for last 2 months she has had increased bladder incontinence and vocal/language changes with her words becoming more slurred. She states that she moved to [place] approximately 4 months and has not set up care with a PCP or neurologist. Per her mother in law, the patient did not start treatment for MS until late 2022. She states that the patient was receiving monthly steroid shots under the care of her neurologist in [place], however has not received any since moving here. States that during this time, they have witnessed progression of her symptoms. On evaluation in the ED, initial labs show WBC 4.0, Hb 8.0, Sodium 143, Potassium 3.4, BUN 13, and creatinine 0.81. Chest no evidence of acute disease. Due to suspicion of MS flare, patient was admitted for corticosteroid therapy and further work up. She was seen by Neurology who recommended pulse dose methylprednisolone for 5 days and MRI brain and spine. MRI brain shows no evidence of acute infarction, intracranial hemorrhage, mass effect or hydrocephalus, moderate paraventricular and deep white matter abnormality consistent with MS. Subcentimeter enhancing lesion in the right frontal white matter consistent wit active demyelination. MRI Cervical spine shows patchy abnormal cord signal throughout the cervical spine consistent with demyelinating disease, but no enhancement to suggest active demyelination. MRI thoracic spine shows patchy abnormal cord signal consistent with MS, questionable enhancement in midthoracic spine. Follow up labs showed urinalysis significant for UTI. Cultures were taken and she was started on antibiotics. Patient progressed favorably. She completed her IV steroid regimen without difficulty. On evaluation today, she that she feels well, is eating well, is tolerating oral diet, and is ambulating within her normal ability. Vitals have remained stable. She is considered stable for discharge home with a steroid taper regimen and Keflex to complete her antibiotic treatment. She is given orders to establish with a PCP once her insurance is transferred to this [facility] so that she be established with a neurologist for continued monitoring and treatment of MS. General: The patient alert and oriented in person place and time. Patient following commands HEENT: Normocephalic, atraumatic, moist mucous membrane Respiratory/pulmonary: Clear lungs bilaterally, vesicular murmurs present in almost all lung ruiz, no associated crackles or wheezes. Abdomen: Obese, Abdomen nondistended, there is no pain to palpation in any of the abdominal quadrants, no palpable masses. Extremities: there is no peripheral edema present at the lower extremities. Peripheral pulses 3+ radial right, 3+ radials soft. 3+ dorsalis pedis right. 3+ dorsalis pedis left Skin: No rashes or pruritus Neurological: Intact cranial nerves with no focal neurologic deficits, muslce tone and bulk conserved, sensation to touch conserved in all extremities, strength is conserved in bilateral upper extremities, strength is conserved in lower extremities Case was discussed with Dr. Mohr. Goals of care discussed with the patient and with her mother in law, who state they understand and agree. Consults/Reason for consult Neurology was consulted due to suspicion of MS exacerbation Operations or Procedures INDICATION: Infiltration TECHNIQUE: Frontal view of the chest. COMPARISON: None FINDINGS: . The heart and mediastinal contours are grossly unremarkable. There is no evidence of pleural disease. The lungs are clear. The bony structures of the chest are intact without fracture. IMPRESSION: 1. No evidence of acute disease. PROCEDURE: MRI BRAIN HEAD WO W CONTRAST INDICATION: MS EXAM DATE: 09/17/2024 10:04 AM COMPARISON: None TECHNIQUE: MRI of the brain with and without 20 cc clariscan intravenous contrast. FINDINGS: Diffusion weighted images of the brain demonstrate no evidence of acute infarction. There is no evidence of acute intracranial hemorrhage, extra-axial collection, mass effect, midline shift, herniation or hydrocephalus. The ventricles, sulci and cisterns appear age appropriate. Moderate periventricular and deep white matter signal abnormality consistent with given history of multiple sclerosis. Subcentimeter enhancing lesion in the right frontal white matter. There are no signal abnormalities on the susceptibility weighted sequences. The major vascular flow voids are present. The visualized paranasal sinuses and mastoid air cells are clear. Subcutaneous lesion in the right parietal scalp likely a sebaceous cyst. IMPRESSION: 1. No evidence of acute infarction, intracranial hemorrhage, mass effect or hydrocephalus. Moderate white matter disease consistent with given history of multiple sclerosis. Subcentimeter enhancing lesion in the right frontal white matter consistent with active demyelination. Clinical correlation and continued follow-up is recommended. Likely sebaceous cyst in the right parietal scalp. ORDERING PHYSICIAN: JERARDO CUMMINGS MD PROCEDURE(s): MSC - CERVICAL WITH CONTRAST REASON: ORDER NUMBER(s): [id number], ACCESSION NUMBER(s): [id number] PROCEDURE: MRI CERVICAL WITH CONTRAST INDICATION: MS EXAM DATE: 09/17/2024 10:19 AM COMPARISON: None TECHNIQUE: MRI cervical spine without intravenous contrast. FINDINGS: The cervical alignment is intact. The vertebral body heights and marrow signal are within normal limits. The visualized posterior fossa and craniocervical junction are intact. Patchy abnormal cord signal throughout the cervical spine. Associated abnormal enhancement. There is no prevertebral soft tissue swelling. The visualized paraspinal soft tissues are otherwise unremarkable. The following axial levels are detailed below: C2-C3: Unremarkable. C3-C4: Unremarkable. C4-C5: Unremarkable. C5-C6: Unremarkable. C6-C7: Unremarkable. C7-T1: Unremarkable. IMPRESSION: 1. No significant posterior disc disease, spinal canal or neural foraminal narrowing. 2. Patchy abnormal cord signal throughout the cervical spine consistent with demyelinating disease. No associated enhancement to suggest active demyelination. Clinical correlation and continued follow-up is recommended. ORDERING PHYSICIAN: JERARDO CUMMINGS MD PROCEDURE(s): MSTW - THORACIC SPINE WO W REASON: ORDER NUMBER(s): [id number], ACCESSION NUMBER(s): [id number] PROCEDURE: MRI THORACIC SPINE WO W INDICATION: MS Exam Date: 09/17/2024 10:33 AM COMPARISON: None TECHNIQUE: MRI thoracic spine with and without 20 cc clariscan intravenous contrast. FINDINGS: Limited by motion. The thoracic alignment is intact. The vertebral body heights are intact. There are degenerative endplate changes with anterior and lateral osteophytes mid to lower thoracic levels. Patchy abnormal cord signal throughout the thoracic spine consistent with given history of multiple sclerosis. Questionable enhancement in the midthoracic spine. There is no significant posterior disc disease, central canal or neural foraminal narrowing. The visualized paraspinal soft tissues are otherwise unremarkable. IMPRESSION: 1. No significant posterior disc disease, central canal or neural foraminal narrowing. 2. Limited by motion, particularly on the axial images. Patchy abnormal cord signal throughout the thoracic spine consistent with demyelinating disease. Questionable enhancement in the midthoracic spine could represent active demyelination. Clinical correlation and continued follow-up is recommended. Condition at Discharge: Stable Final Diagnosis/Problems List Possible Multiple Sclerosis Exacerbation Leukocytosis due to high dose steroids, no sepsis Acute Cystitis with Hematuria Iron Deficiency Anemia, possibly due to metrorrhagia Obesity, 33.8 kg/m2 Discharge Disposition: Home Discharge Instruct/Medications Diet: Regular Activity: No Restrictions, As Tolerated Follow Up/Referral: Follow up with a PCP insurances has been reinstated -Follow up with PCP to get referral for neurologist Medications: Keflex Steroid taper Scheduled Cephalexin (Keflex Capsule), 2 CAP PO BID Methylprednisolone (Medrol Dosepak), 4 MG PO UD Discharge Statement: "Patient was advised to return to the ER or call 911 if any headaches, dizziness, shortness of breath, chest pain, abdominal pain, bleeding, fevers, or worsening of medical condition. Patient was counseled about treatment plan, medications, possible side effects, patientverbalized understanding. All questions were answered to the best of my ability. This discharge took greater then 30 minutes in planning, reviewing documentation, counseling the patient, and discussing with other team members." ASSESSMENT ASSESSMENT Assessment Multiple Sclerosis exacerbation MARTA FORD RESIDENT Sep 21, 2024 14:49
[2024-09-21] MEDS ORDERED: CEPH250C PO (16:02)
[2024-09-21] MEDS ORDERED: METH4PAK PO (16:02)
== END 2024-09-21 18:00 | disposition home or self-care (01) | DRG 43 ==
LOC: EDBD 10:28 → ER 10:28 → EDBD 14:19 → OVERFLOW 14:19 → CENTRAL 20:49
PROVIDERS: ADMIT Student in an Organized Health Care Education/Training Program; ATTEND Student in an Organized Health Care Education/Training Program
DX: G35 Multiple sclerosis (principal); N30.01 Acute cystitis with hematuria; D50.9 Iron deficiency anemia, unspecified; R32 Unspecified urinary incontinence; E66.9 Obesity, unspecified; Z82.49 Family history of ischemic heart disease and other diseases of the circulatory system; N92.1 Excessive and frequent menstruation with irregular cycle; Z79.899 Other long term (current) drug therapy; Z68.33 Body mass index [BMI] 33.0-33.9, adult; Z98.891 History of uterine scar from previous surgery
CPT/HCPCS: 36415; 70553; 71045; 72142; 72157; 80048; 80053; 80307; 81001; 82607; 82728; 82746; 83540; 83550; 84702; 85025; 87086; 93005; 96361; 96374; 97116; 97163; 97530; G0378; J2405; J2470